=== PATIENT | female | born 1945 | race Caucasian/White ===

== ENCOUNTER → 2020-07-27 12:55 | Outpatient (CLI) | payer MEDICARE, OTHER, SELFPAY ==
[2020-07-27] MEDS: COVID-19 VACC, Ad26(JANSSEN)/PF 0.5 ML IM (13:05)
== END ==
PROVIDERS: Family Provider Family Medicine; PCP Family Medicine; Visit Provider Internal Medicine
DX: Z23 Encounter for immunization (principal)
CPT/HCPCS: 0031A; 91303

== ENCOUNTER 2023-01-14 13:53 | Inpatient (IN) | payer MEDICARE, OTHER, SELFPAY ==
[2023-01-14] VITALS (14 sets, daily range): BP systolic 158–223; BP diastolic 61–88; PULSE 58–88; RESP 16–20; TEMP 36.3–36.4; O2SAT 92–97; BMI 25.4
--- NOTE | 2023-01-14 13:56 | DI.RAD.S_ITS ---
PROCEDURE: XR KNEE RT 3V INDICATIONS: fall with knee pain TECHNIQUE: 2 views of the knee were acquired. COMPARISON: [facility], CR, XR HIP W PEL IF DONE RT 2V, 01/14/2023, 14:02. FINDINGS: Bones: No fractures or dislocations. No suspicious bony lesions. Soft tissues: No joint effusion. No suspicious soft tissue calcifications. IMPRESSION: No acute osseous abnormality. If clinical symptoms persist or clinical suspicion for pathology is high, a repeat examination in 7-10 days, or advanced imaging such as CT or MRI is suggested for further evaluation. Dictated by: Vero Romero M.D. on 01/14/2023 at 14:57 Approved by: Vero Romero M.D. on 01/14/2023 at 14:57
--- NOTE | 2023-01-14 13:56 | DI.RAD.S_ITS ---
PROCEDURE: XR HIP W PEL IF DONE RT 2V INDICATIONS: fall with shortening and external rotation TECHNIQUE: AP pelvis with lateral view(s) of the right hip(s). COMPARISON: None. FINDINGS: Bones: There is a right femoral neck fracture with impaction and angulation. Pelvic ring appears intact. No suspicious bony lesions. Soft tissues: The visualized bowel gas pattern is normal. No suspicious soft tissue calcifications. IMPRESSION: Right femoral neck fracture. Dictated by: Vero Romero M.D. on 01/14/2023 at 14:55 Approved by: Vero Romero M.D. on 01/14/2023 at 14:56
[2023-01-14] MEDS: ONDANSETRON 4 MG/2 ML INJ IV (14:00)
[2023-01-14] MEDS: HYDROMORPHONE 0.5 MG INJ IV ×3 (14:00→17:33)
[2023-01-14] MEDS: SODIUM CHLORIDE 0.9% 1,000 ML 1000 ML IV (14:00)
--- NOTE | 2023-01-14 14:12 | ED.GENADULT ---
HPI - General Adult General Chief complaint: Fall Stated complaint: pelvic pain, Syncope Time Seen by Provider: 01/14/23 13:56 History of Present Illness HPI narrative: 77F daily smoker with history of hypertension diabetes presents by EMS for evaluation right hip pain after a ground level fall. She denies any head neck or back pain. She denies any chest pain or shortness of breath. She denies prodromal symptoms such as dizziness, weakness or lightheadedness. EMS was activated and during a repositioning she felt intense pain and had a brief syncopal episode, likely vagal. IV was placed he was given fentanyl 100 mcg prior to arrival and activated as a modified trauma given age and suspected injury. She denies any head injury and takes no blood thinners Related Data Allergies Allergy/AdvReac Type Severity Reaction Status Date / Time aspirin [ASPIRIN] Allergy Mild retinal Unverified 08/23/17 12:31 hemorrhage cefazolin [CEFAZOLIN] Allergy Mild headache Unverified 08/23/17 12:31 cephalexin [CEPHALEXIN] Allergy Mild headache Unverified 08/23/17 12:31 lisinopril [LISINOPRIL] Allergy Mild abdominal Unverified 08/23/17 12:31 pain metformin [METFORMIN] Allergy Mild Unverified 08/23/17 12:31 ramipril [RAMIPRIL] Allergy Mild gi Unverified 08/23/17 12:31 issue/abdominal pain Review of Systems Review of Systems Narrative: GENERAL: Denies chills, fatigue, malaise, fever, sweats. HEENT: Denies sinus pain, ear pain, sore throat, difficulty swallowing, dizziness. RESPIRATORY: Denies dyspnea, cough, wheezing, hemoptysis, sputum. CARDIOVASCULAR: Denies chest pain, palpitations, orthopnea, edema, GASTROINTESTINAL: Denies nausea, vomiting, abdominal pain, diarrhea, constipation, melena. : Denies dysuria, frequency, incontinence, hematuria, urinary retention. MUSCULOSKELETAL: See HPI SKIN: Denies rash, skin lesions, or other NEUROLOGIC: Denies weakness, headache, numbness, change in speech, confusion, seizures, incoordination. PSYCHIATRIC: No concerning psychosocial issues. 12 point review of systems is negative except for those stated above Patient History Medical History HTN (hypertension) Pre-diabetes Surgical History H/O hand surgery Status post hernia repair Status post hysterectomy Family History Brother Age: 72 Diabetes mellitus Hypertension High cholesterol Father Diabetes mellitus Heart disease Hypertension Grandmother Stroke Grandmother Stroke Social History household members: spouse Smoking Status: Current every day smoker Exam Narrative Exam Narrative: GENERAL: [77] year old patient appears stated age. Well-developed patient, in mild distress. GCS 15 HEAD: Atraumatic. Normocephalic. EYES: Pupils equal round and reactive. Extraocular motions intact. No scleral icterus. No injection or drainage. ENT: Nose without bleeding, purulent drainage. Throat without erythema, tonsillar hypertrophy or exudate. Airway patent. NECK: Trachea midline. Non tender CARDIOVASCULAR: Regular rate and rhythm without murmurs, gallops, or rubs. RESPIRATORY: Clear to auscultation. Breath sounds equal bilaterally. No wheezes, rales, or rhonchi. GASTROINTESTINAL: Abdomen soft, non-tender, nondistended. EXTREMITIES: Severe right hip pain, obvious deformity, shortening and external rotation, this is closed, isolated and neurovascularly intact BACK: Nontender without deformity or crepitance. No flank tenderness. NEURO: AOx3. SKIN: No rash or erythema of visible areas Initial Vital Signs Initial Vital Signs: Vital Signs Temperature 97.4 F L 01/14/23 13:58 Pulse Rate 82 01/14/23 13:58 Respiratory Rate 20 01/14/23 13:58 Blood Pressure 189/88 H 01/14/23 13:58 Pulse Oximetry 96 01/14/23 13:58 Oxygen Delivery Method Room Air 01/14/23 13:58 Course Orders Ordered: ED Orders 01/14/23 13:56 XR hip w pel if done RT 2V Stat XR knee RT 3V Stat 01/14/23 14:12 Complete Blood Count AUTO DIFF Stat Comprehensive Metabolic Panel Stat Lipase Stat Magnesium Stat NT-proBNP (BNP-Adult 18+) Stat PTT Partial Thromboplastin Teddy Stat Prothrombin Time INR Stat Troponin & CK Cardiac Panel Stat Acetaminophen (Acetaminophen 325 Mg Tablet) 975 mg PO Q8H PRN PRN Reason: Pain, Mild (1-3) Hydromorphone HCl (Hydromorphone 0.5 Mg Inj) 0.5 mg IV Q2H PRN PRN Reason: Pain, Severe (7-10) Methocarbamol (Methocarbamol 500 Mg Tablet) 500 mg PO QID PRN PRN Reason: Muscle Spasm Naloxone HCl (Naloxone 0.4 Mg/Ml Vial) 0.2 mg IV Q2MIN PRN PRN Reason: Opiate Reversal Ondansetron HCl (Ondansetron 4 Mg/2 Ml Inj) 4 mg IV Q8HR PRN PRN Reason: Nausea And Vomiting Oxycodone HCl (Oxycodone Ir 5 Mg Tablet) 5 mg PO Q3HR PRN PRN Reason: Pain, Moderate (4-6) Discontinued Medications Hydromorphone HCl (Hydromorphone 0.5 Mg Inj) 0.5 mg IV NOW ONE Stop: 01/14/23 13:57 Last Admin: 01/14/23 14:00 Dose: 0.5 mg Documented By: JORGE Hydromorphone HCl (Hydromorphone 0.5 Mg Inj) 0.5 mg IV NOW ONE Stop: 01/14/23 15:37 Last Admin: 01/14/23 15:45 Dose: 0.5 mg Documented By: JORGE Sodium Chloride (Normal Saline 0.9%) 1,000 mls @ 1,000 mls/hr IV BOLUS ONE Stop: 01/14/23 14:55 Last Infusion: 01/14/23 15:07 Dose: 0 mls/hr Documented By: Admin: 01/14/23 14:00 Dose: 1,000 mls/hr Documented By: JORGE Ondansetron HCl (Ondansetron 4 Mg/2 Ml Inj) 4 mg IV NOW ONE Stop: 01/14/23 13:57 Last Admin: 01/14/23 14:00 Dose: 4 mg Documented By: JORGE Consultations Consultation #1: discussed with Dr. Guy (ortho) will get to the OR today or tomorrow, requests admit to hospitalist Consultation #2: Dr. Gonzalez happy to accept Vital Signs Vital signs: Vital Signs - 8 hr 01/14/23 13:58 01/14/23 13:59 01/14/23 14:00 Temperature 97.4 F L Pulse Rate 82 82 Pulse Rate [Right Dorsalis Pedis] Respiratory Rate 20 Blood Pressure 189/88 H 189/88 H Pulse Oximetry 96 95 Oxygen Delivery Method Room Air 01/14/23 14:00 01/14/23 14:30 01/14/23 14:31 Temperature Pulse Rate 83 62 70 Pulse Rate [Right Dorsalis Pedis] Respiratory Rate Blood Pressure Pulse Oximetry 95 97 94 Oxygen Delivery Method 01/14/23 14:31 01/14/23 14:35 01/14/23 14:35 Temperature Pulse Rate 73 Pulse Rate [Right Dorsalis Pedis] Respiratory Rate Blood Pressure 199/81 H 215/84 H Pulse Oximetry 92 Oxygen Delivery Method 01/14/23 14:00 01/14/23 14:45 01/14/23 14:45 Temperature Pulse Rate 68 Pulse Rate [Right Dorsalis Pedis] 88 Respiratory Rate Blood Pressure 223/87 H Pulse Oximetry 93 Oxygen Delivery Method 01/14/23 15:00 01/14/23 15:03 01/14/23 15:03 Temperature Pulse Rate 58 L 63 Pulse Rate [Right Dorsalis Pedis] Respiratory Rate Blood Pressure 190/82 H Pulse Oximetry 93 96 Oxygen Delivery Method Medical Decision Making Lab Data 01/14/23 14:12 01/14/23 14:12 Labs: Lab Results 01/14/23 01/14/23 01/14/23 Range/Units 14:12 14:12 14:12 WBC 6.4 (4.5-11.0) X10^3/uL RBC 4.25 (4.0-5.2) X10^6/uL Hgb 12.7 (12.0-16.0) g/dL Hct 37.5 (36-46) % MCV 88.3 (80-100) fL MCH 29.8 (26-34) PG MCHC 33.8 (30-36) % RDW 13.4 (11.6-14.8) % Plt Count 243 (150-400) X10^3/uL Neut % (Auto) 65.4 (50-75) % Lymph % (Auto) 24.9 L (25-40) % R[place] % (Auto) 7.6 (3-14) % Eos % (Auto) 1.1 L (2-4) % Baso % (Auto) 1.0 (0-2) % Neut # (Auto) 4200 (6178-5914) /uL Lymph # (Auto) 1600 (0414-0938) /uL Rin[place] # (Auto) 500 (0-900) /uL Eos # (Auto) 100 (0-450) /uL Baso # (Auto) 100 (0-100) /uL PT 11.7 (10.1-12.7) SECONDS INR 1.0 (0.9-1.3) APTT 24 L (26-36) SECONDS Sodium 140 (137-145) mmol/L Potassium 3.7 (3.4-5.1) mmol/L Chloride 109 H (98-107) mmol/L Carbon Dioxide 23 (22-32) mmol/L BUN 17 (7-17) mg/dL Creatinine 0.81 (0.52-1.04) mg/dL Estimated GFR > 60 (>60) mL/min BUN/Creatinine Ratio 21.0 (6-22) Glucose 160 H (80-110) mg/dL Calcium 9.3 (8.4-10.2) mg/dL Magnesium 1.8 (1.6-2.3) mg/dL Total Bilirubin 0.7 (0.2-1.3) mg/dL AST 29 (14-36) IU/L ALT 19 (<35) IU/L Alkaline Phosphatase 65 (38-126) U/L Total Creatine Kinase 66 (30-135) U/L Troponin I < 0.012 (0.01-0.034) ng/mL NT-Pro-B Natriuret Pep 467 H (<450) pg/mL Total Protein 7.2 (6.3-8.2) g/dL Albumin 4.2 (3.5-5.0) g/dL Globulin 3.0 (1.7-4.1) g/dL Albumin/Globulin Ratio 1.4 (1.0-2.8) Lipase 80 (23-300) U/L MDM Narrative Medical decision making narrative: 77-year-old female with ground level fall resulting in right hip fracture requires hospitalization for surgical repair. Patient is the primary historian. I have had discussions with both hospitalist and Orthopedics, see details above. Patient and family understand and agree with the diagnosis and plan Discharge Plan Departure Patient Disposition: Admitted As Inpatient Clinical Impression: Closed fracture of right hip Admit Date/Time: 01/14/23 15:13 Admit Provider: Chad Gonzalez
[2023-01-14 14:22] LABS: Add Manual Diff / Slide Review NO; Basophils Absolute Auto 100 /uL (0-100); Eosinophils Absolute Auto 100 /uL (0-450); Eosinophils Percent Auto 1.1 % (2-4); Hematocrit 37.5 % (36-46); Hemoglobin 12.7 g/dL (12.0-16.0); Lymphocytes Absolute Auto 1600 /uL (1100-4500); Lymphocytes Percent Auto 24.9 % (25-40); Mean Corpuscular HGB Conc 33.8 % (30-36); Mean Corpuscular Hemoglobin 29.8 PG (26-34); Mean Corpuscular Volume 88.3 fL (80-100); Monocytes Absolute Auto 500 /uL (0-900); Monocytes Percent Auto 7.6 % (3-14); Neutrophils Absolute Auto 4200 /uL (1500-7000); Neutrophils Percent Auto 65.4 % (50-75); Platelet Count 243 X10^3/uL (150-400); Red Blood Cell Count 4.25 X10^6/uL (4.0-5.2); Red Cell Distribution Width 13.4 % (11.6-14.8); White Blood Cell Count 6.4 X10^3/uL (4.5-11.0)
[2023-01-14 14:44] LABS: Alanine Aminotransferase 19 IU/L (<35); Albumin 4.2 g/dL (3.5-5.0); Albumin Globulin Ratio 1.4 (1.0-2.8); Alkaline Phosphatase 65 U/L (38-126); Aspartate Aminotransferase 29 IU/L (14-36); Bilirubin Total 0.7 mg/dL (0.2-1.3); Blood Urea Nitrogen 17 mg/dL (7-17); Calcium 9.3 mg/dL (8.4-10.2); Carbon Dioxide 23 mmol/L (22-32); Chloride 109 mmol/L (98-107); Creatine Kinase 66 U/L (30-135); Estimated Glomerular Filt Rate > 60 mL/min (>60); Glucose 160 mg/dL (80-110); HEMOLYSIS 44 (0-50); Lipase 80 U/L (23-300); Magnesium 1.8 mg/dL (1.6-2.3); Potassium 3.7 mmol/L (3.4-5.1); Sodium 140 mmol/L (137-145); Total Protein 7.2 g/dL (6.3-8.2)
[2023-01-14 14:45] LABS: Prothrombin Time 11.7 SECONDS (10.1-12.7)
[2023-01-14 14:47] LABS: PTT Partial Thromboplastin Tim 24 SECONDS (26-36)
[2023-01-14 14:54] LABS: NT-proBNP (BNP-Adult 18+) 467 pg/mL (<450); Troponin I < 0.012 ng/mL (0.01-0.034)
--- NOTE | 2023-01-14 16:41 | PM.HP.1 ---
History of Present Illness History of Present Illness Date Patient Seen: 01/14/23 Time Patient Seen: 16:41 Chief complaint: pelvic pain, Syncope Narrative: This is a 77 year old female with PMH of pre-diabetes, and HTN currently diet controlled, daily smoker she states who presented after a mechanical fall with R hip pain. Patient was on a walk, tripped on an uneven sidewalk and had instant pain. She denies preceeding dizziness, chest pain, palpitations. She denies recent dyspnea on exertion or chest pain. Imaging in the ER showed a R femoral neck fracture. Orthopedic surgery plans to perform operative interventions tomorrow morning. She was admitted to hospitalist service for further management. [facility] Medical History HTN (hypertension) Pre-diabetes Surgical History H/O hand surgery Status post hernia repair Status post hysterectomy Family History Brother Age: 72 Diabetes mellitus Hypertension High cholesterol Father Diabetes mellitus Heart disease Hypertension Grandmother Stroke Grandmother Stroke Social History Smoking Status: Current every day smoker Meds Home Medications and Allergies Allergies Allergy/AdvReac Type Severity Reaction Status Date / Time aspirin [ASPIRIN] Allergy Mild retinal Unverified 08/23/17 12:31 hemorrhage cefazolin [CEFAZOLIN] Allergy Mild headache Unverified 08/23/17 12:31 cephalexin [CEPHALEXIN] Allergy Mild headache Unverified 08/23/17 12:31 lisinopril [LISINOPRIL] Allergy Mild abdominal Unverified 08/23/17 12:31 pain metformin [METFORMIN] Allergy Mild Unverified 08/23/17 12:31 ramipril [RAMIPRIL] Allergy Mild gi Unverified 08/23/17 12:31 issue/abdominal pain Review of Systems Review of Systems Narrative: All other systems reviewed with the patient and are negative unless otherwise stated. Exam Vital Signs (past 8 hours): - 01/14/23 13:58 01/14/23 13:59 01/14/23 14:00 Temperature 97.4 F L Pulse Rate 82 82 Pulse Rate [Right Dorsalis Pedis] Respiratory Rate 20 Blood Pressure 189/88 H 189/88 H Pulse Oximetry 96 95 Oxygen Delivery Method Room Air Oxygen Flow Rate 01/14/23 14:00 01/14/23 14:30 01/14/23 14:31 Temperature Pulse Rate 83 62 70 Pulse Rate [Right Dorsalis Pedis] Respiratory Rate Blood Pressure Pulse Oximetry 95 97 94 Oxygen Delivery Method Oxygen Flow Rate 01/14/23 14:31 01/14/23 14:35 01/14/23 14:35 Temperature Pulse Rate 73 Pulse Rate [Right Dorsalis Pedis] Respiratory Rate Blood Pressure 199/81 H 215/84 H Pulse Oximetry 92 Oxygen Delivery Method Oxygen Flow Rate 01/14/23 14:00 01/14/23 14:45 01/14/23 14:45 Temperature Pulse Rate 68 Pulse Rate [Right Dorsalis Pedis] 88 Respiratory Rate Blood Pressure 223/87 H Pulse Oximetry 93 Oxygen Delivery Method Oxygen Flow Rate 01/14/23 15:00 01/14/23 15:03 01/14/23 15:03 Temperature Pulse Rate 58 L 63 Pulse Rate [Right Dorsalis Pedis] Respiratory Rate Blood Pressure 190/82 H Pulse Oximetry 93 96 Oxygen Delivery Method Oxygen Flow Rate 01/14/23 15:16 01/14/23 15:16 01/14/23 15:30 Temperature Pulse Rate 63 66 Pulse Rate [Right Dorsalis Pedis] Respiratory Rate Blood Pressure 215/86 H Pulse Oximetry 95 94 Oxygen Delivery Method Oxygen Flow Rate 01/14/23 16:00 Temperature 97.3 F L Pulse Rate 59 L Pulse Rate [Right Dorsalis Pedis] Respiratory Rate 17 Blood Pressure 167/61 H Pulse Oximetry 96 Oxygen Delivery Method Oxygen Flow Rate 0 Oxygen Delivery Method Room Air Oxygen Flow Rate 0 Narrative Exam Narrative: General:? Patient is well developed and well nourished, shows discomfort with movement. Slowed responses consistent with opiate administration. HEENT:? Normocephalic, atraumatic, extraocular muscles intact, oral pharynx is clear and mucous membranes are moist. Neck: supple and symmetric, trachea is midline, no cervical adenopathy. Negative for JVD Chest:? Normal AP diameter and contour without kyphoscoliosis, no tachypnea, equal chest rise bilaterally. Lungs:? CTA b/l no wheezing rhonchi or rales. Cardio:?RRR no m/r/g. Abdomen: S NT ND. Musculoskeletal:? Muscle strength and tone are equal within normal limits, no deformity. Extremities: bilateral non-pitting edema, RLE short and externally rotated. Skin:? Pale,? Warm to touch,dry and intact without rashes, ulcerations or petechiae.? Neuro:? Alert and orientated x3 though is slowed and seemingly confused (consistent with opiate given in ER).? sensation to touch intact in all extremities, no gross deficits noted of cranial nerves. Psych:? Patient has a well-kept appearance, appropriate affect, mental status attitude thought context and judgment are appropriate for age. Objective Labs 01/14/23 14:12 01/14/23 14:12 Labs: Laboratory Results - last 24 hr 01/14/23 01/14/23 01/14/23 14:12 14:12 14:12 WBC 6.4 RBC 4.25 Hgb 12.7 Hct 37.5 MCV 88.3 MCH 29.8 MCHC 33.8 RDW 13.4 Plt Count 243 Neut % (Auto) 65.4 Lymph % (Auto) 24.9 L Holt % (Auto) 7.6 Eos % (Auto) 1.1 L Baso % (Auto) 1.0 Neut # (Auto) 4200 Lymph # (Auto) 1600 Holt # (Auto) 500 Eos # (Auto) 100 Baso # (Auto) 100 PT 11.7 INR 1.0 APTT 24 L Sodium 140 Potassium 3.7 Chloride 109 H Carbon Dioxide 23 BUN 17 Creatinine 0.81 Estimated GFR > 60 BUN/Creatinine Ratio 21.0 Glucose 160 H Calcium 9.3 Magnesium 1.8 Total Bilirubin 0.7 AST 29 ALT 19 Alkaline Phosphatase 65 Total Creatine Kinase 66 Troponin I < 0.012 NT-Pro-B Natriuret Pep 467 H Total Protein 7.2 Albumin 4.2 Globulin 3.0 Albumin/Globulin Ratio 1.4 Lipase 80 Assessment & Plan Assessment & Plan narrative: 1. R femoral neck fracture, pathologic due to likely osteoporosis. - NPO @ [facility], OR planned for tomorrow per orthopedic surgery - with smoking and HTN history, have ordered pre-op EKG and CXR for evidence of underlying disease including heart or obstructive lung disease. She has no current symptoms of dyspnea on exertion or chest pain. - continue pain control overnight with oxycodone, tylenol, muscle relaxants. - PT/OT consults after OR - check TSH 2. Daily smoker - no nicotine patch at this time. Provide as needed. Smokes about 1/4 ppd. 3. HTN - not currently on medications, likely elevated due to pain initially. Continue to monitor with q4 vitals. 4. history of DM - glucose appears controlled on admit labs. - okay for regular diet. - check an A1c. 5. Toxic encephalopathy due to opiates - patient appeared quite confused on admission after IV dilaudid. Try to limit opiate therapies and continued adjuctive treatments. - no known cognitive impairment and no recent concern per discussion with spouse - no recent urinary symptoms. If no improvement consider UA and further evaluation. Code: Full, surrogate is patient's spouse Additional history obtained via discussion with patient's spouse and ER provider. Discussed plan of care with patient and spouse. DVT: SCDs prior to surgery I have utilized all available immediate resources to obtain, update, or review the patient's current medications. Dispo: Admitted inpatient as her stay is expected to exceed two midnights. Location either home or SNF depending on PT/OT evaluations after surgery. Quality MIPS - Admit I confirm the patient?s Advance Care Plan is present, Code status is documented, Surrogate decision maker is in patient?s record [If Yes, STOP here]: Yes
--- NOTE | 2023-01-14 16:44 | DI.RAD.S_ITS ---
PROCEDURE: XR CHEST 1V INDICATIONS: pre-op XR, previous smoker TECHNIQUE: One view of the chest was acquired. COMPARISON: None. FINDINGS: Surgical changes and devices: None. Lungs and pleura: There is a 5.7 cm masslike opacity can be seen involving the right lower lung along the cardiac border. The lungs otherwise are clear. Mediastinum: Mediastinal contours appear normal. Heart size is normal. Bones and chest wall: No suspicious bony lesions. Age-appropriate bony degenerative changes are seen. Overlying soft tissues appear unremarkable. IMPRESSION: 5.7 cm ossicle opacity seen along the right cardiac border. Differential diagnosis includes a neoplasm as well as atelectasis. Please consider a dedicated chest CT with IV contrast for further evaluation. Dictated by: Satish Borja M.D. on 01/14/2023 at 16:06 Approved by: Satish Borja M.D. on 01/14/2023 at 16:07
[2023-01-14] MEDS: methocarbamoL 500 MG TABLET PO (17:33)
--- NOTE | 2023-01-14 18:51 | DI.CT.S_ITS ---
PROCEDURE: CT CHEST W CON INDICATIONS: 5.7 cm opacity on CXR TECHNIQUE: After the administration of intravenous contrast, 5 mm thick sections acquired from the pulmonary apices to the posterior costophrenic angles. 1 mm axial lung, 5 mm thick coronal and sagittal reformats and 7 mm axial MIP were acquired. For radiation dose reduction, the following was used: automated exposure control, adjustment of mA and/or kV according to patient size. COMPARISON: [facility], CR, XR CHEST 1V, 01/14/2023, 16:44. FINDINGS: Image quality: Excellent. Lungs and pleura: No acute air space opacities. Scattered atelectasis in periphery of bilateral lung couch are seen. 1.2 cm calcified granuloma adjacent to posterior pleura of left lower lobe is also noted. No pleural effusions or pneumothorax. Central and peripheral airways are patent and normal in caliber. Mediastinum: Heart size is mildly enlarged. No pericardial effusion. Mild atherosclerotic calcifications in coronary vessels and thoracic aorta are seen. A few calcified lymph nodes are seen in subcarinal space and left axilla are also noted. No mediastinal or hilar adenopathy by size criteria. Thoracic aorta and central pulmonary arteries are normal in size. Esophagus is normal in caliber. No hiatal hernia. Bones and chest wall: No suspicious bony lesions. No vertebral body compression fractures. No axillary or supraclavicular adenopathy by size criteria. Thyroid gland is within normal limits. Abdomen: Visualized upper abdominal solid organs appear normal. Upper abdominal bowel loops are normal in caliber. IMPRESSION: 1. No suspicious pulmonary nodule or mass is seen. Scattered atelectasis in periphery of bilateral lung couch. 1.2 cm calcified granuloma in posterior aspect of left lower lobe. Chest radiograph finding of possible opacity in right lower lung field likely represent prominent pericardial fat in this area. 2. No pleural effusion or pneumothorax. Airway is patent. 3. No mediastinal or hilar lymphadenopathy by size criteria. A few calcified lymph nodes in mediastinum and left hilar region suggestive of prior granulomatous infection. Dictated by: Dangelo Gold M.D. on 01/14/2023 at 20:22 Approved by: Dangelo Gold M.D. on 01/14/2023 at 20:26
[2023-01-14] MEDS: SODIUM CHLORIDE 0.9% FLUSH 10 ML IV (20:55)
--- NOTE | 2023-01-14 21:56 | PC.NURSE ---
Patient having difficulty with communicating with staff using incorrect words and rambling. Per RN, at shift change report, this is patient' normal per spouse and he reported she has early signs of dementia. At time of assessment she was alert and oriented except to day of month and day of week but did have continued difficulty with finding words and rambling thoughts. Breath sounds CTA with RA sat of 94%. HRR but BP still elevated at 158/64 which has improved from BP readings done in ER. Denied nausea. BT present and abdomen is soft. Indwelling catheter is patent and urine is clear, light dian. Allevyn dressing to right elbow is CDI. Using Angle tilt function to reposition patient q2h due to unrepaired fractured hip so assessment of skin on back/buttocks/coccyx not assessed at this time. Bilateral calf SCD's were applied. CMS is intact except for inability to lift right leg which is shortened and externally rotated. No indication of pain at time of assessment. Fall risk score is high and bed alarm is activated.
[2023-01-15] VITALS (17 sets, daily range): BP systolic 83–175; BP diastolic 35–68; PULSE 59–66; RESP 12–18; TEMP 35.9–36.9; O2SAT 92–95; BMI 25.4
--- NOTE | 2023-01-15 | DI.RAD.S_ITS ---
PROCEDURE: XR PELVIS 1-2V INDICATIONS: OR TECHNIQUE: Intra-operative view of the pelvis and hip acquired. COMPARISON: [facility], [place], XR HIP W PEL IF DONE RT 2V, 01/14/2023, 14:02. [facility], [place], XR PELVIS 1-2V, 01/15/2023, 11:33. FINDINGS: Bones: Intraoperative devices prior to placement of arthroplasty prostheses are in expected positions. No fractures or suspicious bony lesions. Soft tissues: Overlying surgical retractors are present, along with other intraoperative changes. IMPRESSION: Normal intraoperative examination. Dictated by: Satish Borja M.D. on 01/15/2023 at 15:10 Approved by: Satish Borja M.D. on 01/15/2023 at 15:10
--- NOTE | 2023-01-15 | DI.RAD.S_ITS ---
PROCEDURE: XR PELVIS 1-2V INDICATIONS: POST OP TECHNIQUE: 1 view of the lower pelvis acquired. COMPARISON: [facility], [place], XR HIP W PEL IF DONE RT 2V, 01/14/2023, 14:02. [facility], [place], XR PELVIS 1-2V, 01/15/2023, 10:21. FINDINGS: Bones: Patient is status post right hip arthroplasty, with hardware components in expected positions. The hip joint appears congruent. The visualized bony structures appear intact. Soft tissues: Overlying postoperative changes are noted. No suspicious soft tissue densities. IMPRESSION: Normal postoperative examination. Dictated by: Satish Borja M.D. on 01/15/2023 at 15:07 Approved by: Satish Borja M.D. on 01/15/2023 at 15:08
[2023-01-15] MEDS: HYDROMORPHONE 0.5 MG INJ IV ×2 (02:21→06:52)
[2023-01-15] MEDS: SODIUM CHLORIDE 0.9% FLUSH 10 ML IV ×2 (02:22→06:52)
--- NOTE | 2023-01-15 06:15 | P.CONS_ITS ---
History of Present Illness Consult details Date Patient Seen: 01/15/23 Time Patient Seen: 07:30 Chief complaint: pelvic pain, Syncope Reason for consult: right femoral neck fracture Requesting provider: Miguel Guy Narrative: The patient is a 77-year-old community ambulator patient that tripped or fell on a curb yesterday onto her right side. She had immediate pain and was unable to weightbear. She was brought to the emergency room where she was found to have a displaced right femoral neck fracture and a right elbow abrasion. She is a current active smoker proximally a quarter of a pack per day. Her is with her at bedside this morning in the hospital provide some independent history. Denies preoperative hip problems. No known DEXA scan in the last 2 years. States she has an allergy to sulfites. Denies pain other than right elbow and right hip. Past medical history of prediabetes and hypertension. Of note hemoglobin A1c at the hospital today 6.8% Denies chest pain or shortness of breath Chest x-ray and chest CT were obtained Patient was admitted to the hospitalist team for medical management. Meds Home Medications and Allergies Home Medications Medication Instructions Recorded Confirmed Type No Known Home Medications 01/14/23 01/14/23 History Allergies Allergy/AdvReac Type Severity Reaction Status Date / Time aspirin [ASPIRIN] Allergy Mild retinal Unverified 08/23/17 12:31 hemorrhage cefazolin [CEFAZOLIN] Allergy Mild headache Unverified 08/23/17 12:31 cephalexin [CEPHALEXIN] Allergy Mild headache Unverified 08/23/17 12:31 lisinopril [LISINOPRIL] Allergy Mild abdominal Unverified 08/23/17 12:31 pain metformin [METFORMIN] Allergy Mild Unverified 08/23/17 12:31 ramipril [RAMIPRIL] Allergy Mild gi Unverified 08/23/17 12:31 issue/abdominal pain Review of Systems Review of Systems ROS: Yes All systems reviewed with the patient and are negative except as otherwise documented Exam Vital Signs (past 8 hours): - 01/15/23 00:08 01/15/23 00:08 01/15/23 04:17 Temperature 98.2 F 97.5 F L Pulse Rate 59 L 60 Respiratory Rate 16 16 Blood Pressure 167/67 H 175/68 H Pulse Oximetry 93 93 92 Oxygen Delivery Method Room Air Oxygen Flow Rate 0 0 0 Oxygen Delivery Method Room Air Oxygen Flow Rate 0 Narrative Exam Narrative: Alert oriented female in no acute distress currently. Lying in bed. at bedside HEENT exam normocephalic atraumatic Heart regular rate and rhythm Lungs clear to auscultation Upper extremities moving bilateral upper extremities without limitation. There is a Mepilex dressing on the right elbow. This is taken down and reveals a superficial abrasion. Full range of motion. Right lower extremity shortened and externally rotated. Demonstrates dorsiflexion plantar flexion wiggles toes. Palpable dorsalis pedis pulse. Soft calf. Nontender knee. Left lower extremity demonstrates normal alignment 5/5 dorsiflexion plantar flexion palpable pulses. No tenderness ankle knee or thigh Sensation grossly intact Objective Imaging AP pelvis and lateral right hip: My impression: AP pelvis and lateral right hip demonstrate displaced right femoral neck fracture. Radiologist's impression: MPRESSION:??Right?femoral?neck?fracture. Labs 01/15/23 05:40 01/15/23 05:40 Labs: Laboratory Results - last 24 hr 01/14/23 01/14/23 01/14/23 14:12 14:12 14:12 WBC 6.4 RBC 4.25 Hgb 12.7 Hct 37.5 MCV 88.3 MCH 29.8 MCHC 33.8 RDW 13.4 Plt Count 243 Neut % (Auto) 65.4 Lymph % (Auto) 24.9 L Greeley % (Auto) 7.6 Eos % (Auto) 1.1 L Baso % (Auto) 1.0 Neut # (Auto) 4200 Lymph # (Auto) 1600 [place]ley # (Auto) 500 Eos # (Auto) 100 Baso # (Auto) 100 PT 11.7 INR 1.0 APTT 24 L Sodium 140 Potassium 3.7 Chloride 109 H Carbon Dioxide 23 BUN 17 Creatinine 0.81 Estimated GFR > 60 BUN/Creatinine Ratio 21.0 Glucose 160 H Calcium 9.3 Magnesium 1.8 Total Bilirubin 0.7 AST 29 ALT 19 Alkaline Phosphatase 65 Total Creatine Kinase 66 Troponin I < 0.012 NT-Pro-B Natriuret Pep 467 H Total Protein 7.2 Albumin 4.2 Globulin 3.0 Albumin/Globulin Ratio 1.4 Lipase 80 PFSH Medical History HTN (hypertension) Pre-diabetes Surgical History H/O hand surgery Status post hernia repair Status post hysterectomy Family History Brother Age: 72 Diabetes mellitus Hypertension High cholesterol Father Diabetes mellitus Heart disease Hypertension Grandmother Stroke Grandmother Stroke Social History household members: spouse Tobacco & Substance Use Smoking Status: Current every day smoker Assessment & Plan Assessment and plan (1) Osteoporotic fracture of right hip: Qualifiers: Encounter type: initial encounter Qualified Code(s): M80.051A - Age- related osteoporosis with current pathological fracture, right femur, initial encounter for fracture Status: Acute (2) Closed fracture of right hip: Qualifiers: Encounter type: initial encounter Qualified Code(s): S72.001A - Fracture of unspecified part of neck of right femur, initial encounter for closed fracture Status: Acute Plan Ground level fall fragility fracture right femoral neck, osteoporotic hip fracture. Discussed poor healing of displaced femoral neck fractures. Recommendation is for endoprosthetic, hemiarthroplasty partial hip replacement for her displaced right femoral neck fracture. Discussed this would allow immediate weightbear as tolerated. Discussed surgical risks benefits and alternatives. Discussed the surgical benefits outweigh the risks of a untreated hip fracture. Discussed untreated hip fracture results in bed rest and inability to walk and ultimately pneumonia and cardiopulmonary complications. Treatment with partial hip replacement unless immediate weight-bearing helps limit the increased morbidity of prolonged bed last. Discussed these injuries do have a risk of blood clot, stroke, fracture, dislocation, paralysis, blood loss need for blood transfusion and infection. Risks benefits and alternatives to surgery were discussed with the patient and her . Informed consent was signed for partial hip replacement indication right displaced femoral neck hip fracture. Further discussed ground level fall hip fracture the definition of osteoporotic hip fracture. Patient has not had a DEXA scan in 2 years. Discussed during recovery this is recommended with her primary care doctor. Recommended calcium and vitamin-D. If DEXA scan shows more severe osteoporosis then additional medications can also be considered and counseled with the primary care doctor. Planned surgery today for endoprosthetic replacement (cemented hemiarthroplasty for displaced right femoral neck fracture) NPO for surgery. Patient encouraged to participate in smoking cessation Assessment & Plan narrative: High-level medical decision-making. Decision for major orthopedic surgery--hip fracture. Medical risk factors including active smoking and osteoporosis. Requires inpatient hospital stay. Anticipate home with assistance versus long-term discharge after surgery. Time Spent With Patient Time with patient: 50 to 69 minutes with 50% spent counseling/coordinating care
[2023-01-15 06:17] LABS: Add Manual Diff / Slide Review NO; Basophils Absolute Auto 0 /uL (0-100); Basophils Percent Auto 0.2 % (0-2); Eosinophils Absolute Auto 0 /uL (0-450); Eosinophils Percent Auto 0.2 % (2-4); Hematocrit 38.8 % (36-46); Hemoglobin 13.2 g/dL (12.0-16.0); Lymphocytes Absolute Auto 900 /uL (1100-4500); Lymphocytes Percent Auto 9.5 % (25-40); Mean Corpuscular HGB Conc 34.1 % (30-36); Mean Corpuscular Hemoglobin 29.9 PG (26-34); Mean Corpuscular Volume 87.7 fL (80-100); Monocytes Absolute Auto 600 /uL (0-900); Monocytes Percent Auto 5.8 % (3-14); Neutrophils Absolute Auto 8100 /uL (1500-7000); Neutrophils Percent Auto 84.3 % (50-75); Platelet Count 206 X10^3/uL (150-400); Red Blood Cell Count 4.42 X10^6/uL (4.0-5.2); Red Cell Distribution Width 13.6 % (11.6-14.8); White Blood Cell Count 9.6 X10^3/uL (4.5-11.0)
[2023-01-15 06:27] LABS: BUN Creatinine Ratio 17.6 (6-22); Blood Urea Nitrogen 12 mg/dL (7-17); Carbon Dioxide 28 mmol/L (22-32); Chloride 103 mmol/L (98-107); Estimated Glomerular Filt Rate > 60 mL/min (>60); Glucose 171 mg/dL (80-110); HEMOLYSIS < 15 (0-50); Hemoglobin A1C% w Est Avg Glu 6.8 % (4.0-6.0); Magnesium 1.9 mg/dL (1.6-2.3); Potassium 3.6 mmol/L (3.4-5.1); Sodium 138 mmol/L (137-145)
[2023-01-15 07:15] LABS: TSH w/ Reflex to FT4 3.43 uIU/mL (0.47-4.68)
--- NOTE | 2023-01-15 08:13 | PM.OP.1 ---
Operative Date/Time/Diagnoses Date of procedure: 01/15/23 Time of procedure: 09:30 Pre-op diagnosis: Osteoporotic right hip fracture M80.051 Closed right hip fracture S72.001 Post-op diagnosis: same Procedure & Clinicians Procedure: Hemiarthroplasty for right femoral neck fracture CPT code 99176 Same procedure as scheduled: Yes Indications: Patient is a 77-year-old female with a displaced right femoral neck fracture. She is indicated for fixation with endoprosthetic replacement to allow immediate weight-bearing and early mobilization and avoid the increased morbidity mortality associated with prolonged bed rest. The risks and benefits of the procedure have been discussed with the patient and given the opportunity to ask questions. The risks of surgery include but are not limited to infection, fracture, dislocation, instability, perceived leg length discrepancy, persistence of pain, damage to nerves and blood vessels, posttraumatic arthritis, DVT, PE, cardiopulmonary complications and . The patient expressed a thorough understanding of the risks and benefits of surgery and has elected to proceed. Consent was signed. During the operation, the services of a physician surgical physician assistant were medically indicated and necessary to provide the exposure of the operative site for the surgical procedure and to maintain the limb in a proper position to carry out the operation safely and efficiently. Without a qualified nurses medical assistants phlebotomists being present this would extended the operative procedure and made the procedure technically more difficult to perform. Surgeon: Jessica Werner Web Services Manager: Isaias Braden Anesthesia Type: General, Spinal and Local Operative Notes Findings: Displaced right femoral neck fracture Closure Type: primary Specimen(s): none sent Prosthetic devices, grafts, tissues, transplants, or devices: Brooke and Nephew tandem unipolar head 45 mm cobalt chromium Brooke and Nephew Synergy stem cemented size 10 cobalt chromium and PMMA Neck +4 Small bone plug 8 mm distal post centralizer Estimated Blood Loss (mL): 200 Blood products transfused: none Tourniquet time (min): 0 Procedure in detail: Hemiarthroplasty for femoral neck fracture CPT code 81246. Patient was seen in the preoperative area the site of surgery was marked and informed consent confirmed. The patient was brought back to the operating room by the anesthesia team. Patient was positioned supine on the operative table. Patient was rolled to a lateral positioned and spinal anesthetic was performed. General anesthetic was also administered. Patient was then moved into the lateral position. The hip vp analysis positioner pads were then placed. A well-padded axillary roll was placed and the arms were appropriately positioned. The affected lower extremity was prepped and draped from the ankle to the iliac crest with ChloraPrep in the standard fashion sterile drapes were placed. Formal time-out procedure was performed confirming the patient's side and site of surgery, presence of informed consent, administration of appropriate preoperative antibiotics. Hip was approached through a standard posterior approach. Dissection was carried down through the skin and subcutaneous tissues sharply through the skin and then with the Bovie through the subcutaneous tissues. The fascia nikkie was exposed and opened. Fascia was opened using the Bovie and the gluteus raad was spread with finger retraction. The Charnley retractor was placed. The inflamed bursa was resected. The piriformis was then identified. A Cobra retractor was placed under the gluteus medius to help expose the external rotators. The piriformis and short external rotators were tagged with a # 2 FiberWire and divided off the trochanter. Capsular tag was completed with a 2. Ethibond. These were then retracted posteriorly to protect sciatic nerve. The femur was then flexed and internally rotated to present the femoral neck and the fracture. A corkscrew and a Carranza were used to remove the femoral head from the acetabulum. This was measured to fit a 45 mm head. Next the femur was presented. A clean-up neck cut was made in a minimal fashion. The trial head size was trialed in the acetabulum. Attention was then turned to the femur. The canal was opened with a box cutting osteotome. This followed by the canal finder and a lateralizing Reamer. And curette to remove additional lateral bone. The tapered reamers were then used up to a size 10 mm. Then broaching was sequentially done up to a size 10 mm. Trial components were placed. The patient was stable in the position of sleep, squatting and could be put through a range of motion with 70? of internal rotation without dislocation. This was felt to be appropriate. An intraop a AP pelvis x-ray was obtained to assess component position. Final components were then selected. The final stem was a size 10. Femoral canal was prepared . The distal small restrictor was placed approximately 1 cm distal to the end of the planned implant. The bone was meticulously cleaned with pulse lavage. Canal was then packed with gauze. Two packages of cement were mixed and carefully pressurized into the femoral canal. The femoral component was then placed without difficulty. This was held in place until the cement hardened. The repeat trial reduction showed good range of motion felt the hip would benefit from little more length so the +4 neck was utilized and this was trialed with excellent range of motion and stability. The final head and neck were then carefully placed. The wound was irrigated. The capsule and muscular flap was repaired with the 2. Ethibond. Next the short external rotators were repaired with 2. FiberWire to the greater trochanter through drill holes in the greater trochanter using the 2.5 drill and a Bespoke suture Passer. These were tied with the leg in abduction. The wound was then irrigated again. The fascia nikkie was closed with 0 Vicryl and the subcutaneous layer was closed with 2-0 Vicryl and the skin with jennifer. An Aquacel dressing was placed. A pillow was placed for protection. The drapes removed and the patient was taken to the recovery room in good condition. There no immediate complications from this procedure. All counts were correct. Postoperative AP pelvis x-ray was obtained in the PACU showed appropriate alignment of the cemented hip hemiarthroplasty with no evidence of fracture. Complications: none Post-operative Condition: stable Disposition: PACU Plan for aftercare: Weightbear as tolerated. Pillow between the legs while in bed. Posterior hip precautions for 6 weeks. Recommend DVT prophylaxis with subcutaneous Lovenox 40 mg subcutaneous daily for 28 days (4 weeks). Follow up in Orthopedic Clinic for staple removal in 2 weeks.
[2023-01-15] MEDS: LACTATED RINGERS 1,000 ML 42 ML IV (08:45)
[2023-01-15] MEDS: CEFAZOLIN 2 GM/100 ML PREMIX 100 ML IV ×2 (09:00→17:17)
--- NOTE | 2023-01-15 10:12 | SUR.OPER ---
Lateral on a boyce bag, head on pillow, gel axillary roll in place, bottom leg bent with gel pad under knee to foot, upper leg straight and supported with pillows. Upper arm supported by pillows and secured over bottom arm to padded arm board. Safety belt at hip, tape over blanket lower legs.
[2023-01-15] MEDS: TRANEXAMIC ACID 1,000 MG in SODIUM CHLORIDE 0.9% 100 ML 200 MG IV (10:35)
[2023-01-15] MEDS: BUPIVACAINE 0.25% (PF) 30 ML, EPINEPHrine 0.15 MG INJ (10:38)
[2023-01-15] MEDS: LACTATED RINGERS 1,000 ML 100 ML IV (13:29)
[2023-01-15] MEDS: IBUPROFEN 600 MG TABLET PO ×2 (13:29→20:38)
[2023-01-15] MEDS: INSULIN LISPRO 100 UNIT/ML 3ML VIAL SUBCUT ×2 (13:39→17:09)
--- NOTE | 2023-01-15 14:45 | CM.DANOTE ---
Addendum entered by MAXIME Gonzalez 01/16/23 14:37: ADD: [facility] accepts for admission tomorrow, 01.17.23. PASRR completed. Patient and spouse updated Addendum entered by MAXIME Gonzalez 01/16/23 10:29: ADD: PT recommending SNF and patient/spouse are agreeable to this, request referral to [facility]. Patient/spouse are having work done on their home here in [place] while they dog sit for a friend who has 17+stairs just to get into the friend's duplex. Leonie at [facility] now reviewing, aiming for discharge to SNF tomorrow Original Note: Initial DCP Assessment Note Pt is a 77 yo female, resident of [place], arrives after a fall with subsequent right femoral neck fracture and a right elbow abrasion Patient was taken to the OR this morning for right hip repair PCP: Divina Bazan, current provider (?) Payer: [facility] byyd Reviewed chart, pt discussed in multidisciplinary rounds this morning. Patient is an indp ambulator at baseline. Awaiting therapy eval to help in dispo planning. Home w/spouse vs SNF. CM team following closely to assist in DC planning and coordination MAXIME Steve Discharge Planning/Care Management CM Discharge Assessment Start: 01/15/23 14:42 Freq: Status: Active Protocol: Document 01/15/23 14:42 TYLER (Rec: 01/15/23 14:45 TYLER [id number]) Discharge Planning Assessment Assigned Offset Pressman MAXIME Conway DPOA/Assigned Designee Name Gurvinder Persaud, spouse Contact Information [phone] Advance Directives? Yes Advance Directives on File No: patient spouse reports its in her chart History Provided By Patient,Family Member Prior Living Arrangements House Household Members spouse Type of transporation used prior to Drives own vehicle admit Independent with ADL's Yes Is patient alert and oriented? Yes Patient/Family Preference Home with Home Health Barriers to Discharge No Comment Anticipate return home w/ spouse and services, however, therapy evals are still pending which will help guide dispo planning Discharge Plan Home Transportation Arrangement Home vs SNF, likely pov vs w/c van Referrals Initiated None needed Additional Comment Awaiting further assessment of need, therapies pending
--- NOTE | 2023-01-15 15:33 | PT-IP ANOTE ---
Physical therapy order received and chart reviewed. Posted posterior hip precautions in her room for safety after surgery. Pt has mild confusion today. Will plan to start physical therapy tomorrow.
--- NOTE | 2023-01-15 16:27 | PC.NURSE ---
Patient increasingly confused after surgery. Unable to finish her sentences and rambles on about random topics. Oriented to self and knows that she had surgery. Patient is unable to communicate if she is having pain- talked to Dr Adame about scheduling Tylenol to maintain adequate pain control measures.
--- NOTE | 2023-01-15 16:59 | PM.PN.1 ---
Subjective Subjective Date Patient Seen: 01/15/23 Time Patient Seen: 08:00 Interval history: She is quite grateful for her care here. She has no significant pain. She is confused, but nursing has confirmed with her family that she is near baseline. Exam Vital Signs (past 8 hours): - 01/15/23 11:33 01/15/23 11:38 01/15/23 11:43 Temperature 97.9 F Pulse Rate 63 64 65 Respiratory Rate 12 14 12 Blood Pressure 101/41 L 106/41 L 83/35 L Pulse Oximetry 93 95 94 Oxygen Delivery Method Room Air Room Air Room Air Oxygen Flow Rate 01/15/23 11:48 01/15/23 11:53 01/15/23 12:00 Temperature 97.9 F Pulse Rate 64 62 66 Respiratory Rate 16 13 12 Blood Pressure 93/42 L 105/38 L 107/41 L Pulse Oximetry 95 93 92 Oxygen Delivery Method Room Air Room Air Room Air Oxygen Flow Rate 01/15/23 12:20 01/15/23 12:20 01/15/23 12:50 Temperature 96.7 F L 96.7 F L 97.1 F L Pulse Rate 64 64 60 Respiratory Rate 14 14 16 Blood Pressure 113/45 L 113/45 L 115/60 Pulse Oximetry 95 95 94 Oxygen Delivery Method Oxygen Flow Rate 0 0 0 01/15/23 13:25 01/15/23 12:00 01/15/23 16:00 Temperature 97.2 F L Pulse Rate 60 Respiratory Rate 16 Blood Pressure 125/46 L Pulse Oximetry 92 92 94 Oxygen Delivery Method Room Air Room Air Oxygen Flow Rate 0 0 0 01/15/23 14:20 01/15/23 15:40 Temperature 97.8 F 97.8 F Pulse Rate 62 61 Respiratory Rate 18 18 Blood Pressure 118/45 L 107/46 L Pulse Oximetry 93 94 Oxygen Delivery Method Oxygen Flow Rate 0 0 Oxygen Delivery Method Room Air Oxygen Flow Rate 0 Narrative Exam Narrative: No acute distress Heart regular rate and rhythm Lungs clear to auscultation EXT: Mepilex dressing on the right elbow. This is taken down and reveals a superficial abrasion. Full range of motion. Right leg with bandage on hip which is clean, dry and intact Objective Labs 01/15/23 05:40 01/15/23 05:40 Labs: Laboratory Results - last 24 hr 01/15/23 01/15/23 01/15/23 05:40 05:40 05:40 WBC 9.6 RBC 4.42 Hgb 13.2 Hct 38.8 MCV 87.7 MCH 29.9 MCHC 34.1 RDW 13.6 Plt Count 206 Neut % (Auto) 84.3 H Lymph % (Auto) 9.5 L Bennett % (Auto) 5.8 Eos % (Auto) 0.2 L Baso % (Auto) 0.2 Neut # (Auto) 8100 H Lymph # (Auto) 900 L Bennett # (Auto) 600 Eos # (Auto) 0 Baso # (Auto) 0 Sodium 138 Potassium 3.6 Chloride 103 Carbon Dioxide 28 BUN 12 Creatinine 0.68 Estimated GFR > 60 BUN/Creatinine Ratio 17.6 Glucose 171 H Hemoglobin A1c Calcium 9.0 Magnesium 1.9 TSH 3.43 01/15/23 05:40 WBC RBC Hgb Hct MCV MCH MCHC RDW Plt Count Neut % (Auto) Lymph % (Auto) Bennett % (Auto) Eos % (Auto) Baso % (Auto) Neut # (Auto) Lymph # (Auto) Bennett # (Auto) Eos # (Auto) Baso # (Auto) Sodium Potassium Chloride Carbon Dioxide BUN Creatinine Estimated GFR BUN/Creatinine Ratio Glucose Hemoglobin A1c 6.8 H Calcium Magnesium TSH PFS Medical History HTN (hypertension) Pre-diabetes Surgical History H/O hand surgery Status post hernia repair Status post hysterectomy Family History Brother Age: 72 Diabetes mellitus Hypertension High cholesterol Father Diabetes mellitus Heart disease Hypertension Grandmother Stroke Grandmother Stroke Social History household members: spouse Smoking Status: Current every day smoker Assessment & Plan Assessment & Plan narrative: 1. R femoral neck fracture, pathologic due to likely osteoporosis. - s/p repair on 01/15 with ortho - with smoking and HTN history, have ordered pre-op EKG and CXR for evidence of underlying disease including heart or obstructive lung disease. She has no current symptoms of dyspnea on exertion or chest pain. - continue pain control overnight with oxycodone, tylenol, muscle relaxants. - PT/OT consults after OR 2. Daily smoker - no nicotine patch at this time. Provide as needed. Smokes about 1/4 ppd. 3. HTN - not currently on medications, likely elevated due to pain initially. Continue to monitor with q4 vitals. 4. history of DM - glucose appears controlled on admit labs. - okay for regular diet. - check an A1c. 5. Confusion - likely cognitive impairment, illness and recent surgery and anesthesia all contributing - monitor closely
[2023-01-15] MEDS: ACETAMINOPHEN 325 MG TABLET 650 MG PO (17:08)
[2023-01-15] MEDS: DOCUSATE 100 MG CAPSULE PO (20:37)
[2023-01-15] MEDS: methocarbamoL 500 MG TABLET PO (20:37)
[2023-01-16] VITALS (7 sets, daily range): BP systolic 114–142; BP diastolic 45–54; PULSE 57–61; RESP 16–20; TEMP 35.9–37.1; O2SAT 93–98
[2023-01-16] MEDS: LACTATED RINGERS 1,000 ML 100 ML IV (00:55)
[2023-01-16] MEDS: CEFAZOLIN 2 GM/100 ML PREMIX 100 ML IV (00:56)
[2023-01-16] MEDS: IBUPROFEN 600 MG TABLET PO ×4 (03:22→20:49)
[2023-01-16] MEDS: ACETAMINOPHEN 325 MG TABLET 650 MG PO ×3 (04:35→17:19)
[2023-01-16 06:01] LABS: Add Manual Diff / Slide Review NO; Basophils Absolute Auto 0 /uL (0-100); Basophils Percent Auto 0.2 % (0-2); Eosinophils Absolute Auto 100 /uL (0-450); Eosinophils Percent Auto 1.5 % (2-4); Hematocrit 33.9 % (36-46); Hemoglobin 11.6 g/dL (12.0-16.0); Lymphocytes Absolute Auto 600 /uL (1100-4500); Lymphocytes Percent Auto 7.5 % (25-40); Mean Corpuscular HGB Conc 34.2 % (30-36); Mean Corpuscular Volume 87.8 fL (80-100); Monocytes Absolute Auto 600 /uL (0-900); Monocytes Percent Auto 7.1 % (3-14); Neutrophils Absolute Auto 7100 /uL (1500-7000); Neutrophils Percent Auto 83.7 % (50-75); Platelet Count 161 X10^3/uL (150-400); Red Blood Cell Count 3.86 X10^6/uL (4.0-5.2); Red Cell Distribution Width 13.7 % (11.6-14.8); White Blood Cell Count 8.5 X10^3/uL (4.5-11.0)
[2023-01-16 06:10] LABS: BUN Creatinine Ratio 16.7 (6-22); Blood Urea Nitrogen 11 mg/dL (7-17); Calcium 8.5 mg/dL (8.4-10.2); Carbon Dioxide 27 mmol/L (22-32); Chloride 104 mmol/L (98-107); Estimated Glomerular Filt Rate > 60 mL/min (>60); Glucose 155 mg/dL (80-110); HEMOLYSIS < 15 (0-50); Magnesium 1.9 mg/dL (1.6-2.3); Potassium 3.5 mmol/L (3.4-5.1); Sodium 136 mmol/L (137-145)
--- NOTE | 2023-01-16 08:22 | PC.NURSE ---
Patient is alert and oriented x2. She is confused at times and states that she does not remember having surgery yesterday. Dressing to r.hip is cdi with aquacel in place and scattered dried drainage atop. She will be working with physical therapy today. CMS wnl and ppx2.
[2023-01-16] MEDS: POTASSIUM CHLORIDE 20 MEQ TAB 40 MEQ PO (08:38)
[2023-01-16] MEDS: ENOXAPARIN 40 MG/0.4 ML SYRINGE SUBCUT (08:38)
[2023-01-16] MEDS: DOCUSATE 100 MG CAPSULE PO ×2 (08:38→20:48)
[2023-01-16] MEDS: INSULIN LISPRO 100 UNIT/ML 3ML VIAL SUBCUT ×3 (08:39→17:20)
--- NOTE | 2023-01-16 09:54 | PT.IIE ---
Current Diagnoses Age-related osteoporosis with current pathological fracture, right femur, initial encounter for fracture (01/14/23) Fracture of unspecified part of neck of right femur, initial encounter for closed fracture (01/14/23) Surgery Performed Operation Date: 01/15/23 09:00 Actual Procedures p Hip Hemiarthroplasty Will(Right) - Jessica Werner MD Surgical History (Last Reviewed 01/15/23 @ 08:08 by Jessica Werner MD) H/O hand surgery Status post hernia repair Status post hysterectomy Medical History (Last Reviewed 01/15/23 @ 08:08 by Jessica Werner MD) HTN (hypertension) Pre-diabetes Physical Therapy Inpatient Evaluation/Re-Eval M1 PT/OT-IP Prior Functional Status Start: 01/15/23 15:35 Freq: NEEDED Status: Active Protocol: Document 01/15/23 15:35 DLM (Rec: 01/15/23 15:38 DLM [id number]) Medical Review Prior Functional Status Medical History Reviewed Yes Diet/Fluid Consistency Regular Communication mild speech 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 Social History Household Members spouse Living Arrangements House Number of Floors (Floors) Two Floors Number of Stairs To Enter/Railing? 4-5 with rail Additional Social History Comment [place] a floor at their home. Where they are staying has the bedroom on the second floor and has steps to enter the house. Her questions if pt could sleep on the couch on the first floor. They will be back in their home on Jan 25 which is one level. They have friends with equipment that they can borrow or they will borrow from [employer]. M2 PT-IP Current Condition Start: 01/15/23 15:35 Freq: NEEDED Status: Active Protocol: Document 01/16/23 09:54 AW (Rec: 01/16/23 10:20 AW [id number]) Physical Therapy Current Condition Current Condition Evaluation Date 01/16/23 Treatment Diagnosis R femoral neck fx x/p hemiarthroplasty; GLF; impaired mobility Onset Date 01/14/23 M3 PT-IP Subjective Start: 01/15/23 15:35 Freq: NEEDED Status: Active Protocol: Document 01/16/23 09:54 AW (Rec: 01/16/23 10:20 AW [id number]) Subjective Physical Therapy Visit Type Type Initial Evaluation Visit Start Time : Visit Stop Time :54 Total Visit Minutes 31 Physical Therapy Visit Comments Patient Comments Pt is willing to participate with PT, reports minimal pain at rest but anticipates increased pain with mobility. Patient Goals Pt and her spouse are open to rehab options Therapy Pain Assessment Pain When Pain Assessed FLACC Pain Present Pain Present Pain Reported FLACC Pain Scale Face Occasional grimace/frown Legs Uneasy, restless, tense Activity Squirming,shifting Cry Moans/whimpers/complains Consolability Reassurable with touch FLACC Total 5 M4 PT-IP Mobility and Gait Start: 01/15/23 15:35 Freq: NEEDED Status: Active Protocol: Document 01/16/23 09:54 AW (Rec: 01/16/23 10:20 AW [id number]) PT-Bed Mobility Assessment Supine to Sit Supine to Sit Moderate Assistance,Maximum Assistance,1 Person Assistance ,Head of Bed Elevated,Bedrails Scooting Scooting to Edge of Bed Maximum Assistance PT-Transfer Assessment Sit to and From Stand Sit to and from Stand Moderate Assistance,1 Person Assistance,Use of Upper Extremities Equipment Transfer Assistive Device Bed Rail,Gait Belt,Front Wheeled Walker Orthotic/Prosthetic Devices or Brace: No Transfers Transfer Destination Chair Transfer Technique Stand Step Pivot Transfer Ability Level of Assist Moderate Assistance,Use of Upper Extremities Comments Mobility Comments Pt was lying in bed as PT arrived, agreeable to therapy. Pt is aware she has posterior hip precautions but does not recall them. She needs cues to look at the whiteboard where they are posted. RLE rests in internal rotation and pt requires frequent cues for neutral hip alignment. Would benefit from abduction pillow (spoke with materials mgmt who will deliver to room). Mod/ max A for supine to sit transfer with PT providing assist primarily via draw pad as pt made liberal use of bed features. Pt's spouse arrived at this time. Pt sat EOB with slight lean toward left secondary to right hip pain. She stood with verbal and tactile cues for hip flexion precaution and used FWW to steady herself. She was able to move RLE into position for best GEETA but struggled with RLE weightbearing. She was able to shift her weight laterally with some return demo of education on using BUE to off-weight RLE. Pt sat EOB , reporting pain and fatigue. She agreed to trial transfer to the chair, needing mod A to stand and to pivot toward chair set up on her left side. Pt was left in the chair with call light in reach, spouse remained in room. Due to pt forgetfulness, advised RN of possible need for chair alarm. Gait Assessment Gait Gait Assistance Required: Moderate Assistance,1 Person Assist Distance (Feet) 3 Able to Maintain Weight Bearing Status Yes During Gait Assistive Devices Assistive Device Gait Belt,Front Wheeled Walker Orthotic/Prosthetic Devices or Brace: No Gait Deviations General Gait Pattern Antalgic,Decreased Stride Length,Decreased Feet Clearance,Flexed Trunk Factors Limiting Gait Function Factors Limiting Gait Function Decreased Strength,Pain,Poor Balance Comments Gait Comments Steps taken during transfer only. PT-Balance Assessment Sitting Balance and Reactions Static Sitting Balance Ability Good Dynamic Sitting Balance Ability Fair Standing Balance and Reactions Static Standing Balance Ability Fair Dynamic Standing Balance Ability Poor Device Used FWW Comments Other Balance Tests/Deviations/Treatment Benefits from cues to look : toward horizon, fix gaze, and focus on UE weightbearing on walker. M5 PT-IP Objective Assessments Start: 01/15/23 15:35 Freq: NEEDED Status: Active Protocol: Document 01/16/23 09:54 AW (Rec: 01/16/23 10:20 AW [id number]) Orientation Orientation/Cognition Level of Alertness Confusional State Orientation Name,Place,Situation Safety Awareness Decreased Safety Awareness Comments Pt presents with confusion but is able to follow one to two step commands Gross Range of Motion Upper Extremity ROM Assessment Within Functional Limits Lower Extremity ROM Assessment Right Impaired Strength Lower Extremity Strength Hip flexion R 3-/5; L 4-/5 Knee ext R 4/5; L 4+/5; flex B 4/5 Ankle DF R 4/5; L 4+/5 Comments Strength Comments Pt quite hesitant and limited by pain Sensation Assessment Sensation Gross Sensation WNL M6 PT-IP Treatment Start: 01/15/23 15:35 Freq: NEEDED Status: Active Protocol: Document 01/16/23 09:54 AW (Rec: 01/16/23 10:29 AW [id number]) Physical Therapy Treatment Exercises Exercises Ankle Pumps,Gluteal Sets,Quad Sets,Heel Slides Education Education Provided Precautions,Weight Bearing Status Other Treatments Other Treatment Performed Educated on functional implications of posterior hip precautions with regard to mobility and ADL's. Pt to benefit from OT evaluation. M7 PT-IP Assessment and Plan Start: 01/15/23 15:35 Freq: NEEDED Status: Active Protocol: Document 01/16/23 09:54 AW (Rec: 01/16/23 10:29 AW [id number]) PT Summary Assessment and Plan Potential Rehabilitation Potential Good Status of Condition at Evaluation Evolving Summary Impairments Pain,ROM,Strength,Balance, Cognition,Bed Mobility, Transfers,Gait Assessment Summary Rajwinder is a 77 yo woman seen for PT evaluation while admitted after a ground level fall. She sustained right femoral neck fracture and is now POD1 s/p hemiarthroplasty. She is to maintain WBAT and posterior hip precautions for 6 weeks. At baseline, pt is independent without AD and ambulates community distance. She lives with her spouse in a single level home but they are currently staying in a two story home with stairs while a remodeling project is being finished at home. CLOF: Pt is aware she has hip precautions but is unable to recall them and needs assist to functionally implement same. She is requiring mod to max assist for bed mobility and transfers, unable to progress to functional gait at this time. Acute PT will continue to work with her on functional mobility. PT recommends transition to SNF for 24/7 assist and daily rehab to assist with her functional recovery. Goals Bed Mobility Goal Contact Guard Assistance Transfer Goal Standby Assistance,Front Wheeled Walker Gait Goal Standby Assistance,Front Wheel Walker Gait Distance 75 Days to Meet Goals 10 Frequency of Treatment Frequency Of Treatment Twice a Day Treatment Plan Physical Therapy Treatment Plan Bed Mobility Training,Transfer Training,Gait Training, Therapeutic Exercise,Balance Retraining,Post Op Education, Discharge Planning,Hot or Cold Pack,Neuromuscular Re-ed Other Recommendations and Next Treatment reinforce precautions, Focus transfers, ther ex, gait with chair follow as tolerated Precautions Posterior Hip Precautions No Hip Flexion > 90 degrees,No Hip Internal Rotation,No Hip Adduction Weight Bearing Status Weight Bearing Status Weight Bear as Tolerated Recommendations To Nursing Amount of Assist Needed 1 Person Assist,2 Person Assist Discharge Recommendations PT Discharge Recommendations SNF Rehab Transportation Needs at Discharge Wheelchair/Cabulance
--- NOTE | 2023-01-16 13:34 | P.PN_ITS ---
Exam Vital Signs (past 8 hours): - 01/16/23 08:16 01/16/23 08:00 01/16/23 12:00 Temperature 98.8 F Pulse Rate 59 L Respiratory Rate 16 Blood Pressure 126/54 L Pulse Oximetry 98 Oxygen Delivery Method Room Air Room Air Oxygen Flow Rate 0 Oxygen Delivery Method Room Air Oxygen Flow Rate 0 Objective Labs 01/16/23 05:15 01/16/23 05:15 Labs: Laboratory Results - last 24 hr 01/16/23 01/16/23 05:15 05:15 WBC 8.5 RBC 3.86 L Hgb 11.6 L Hct 33.9 L MCV 87.8 MCH 30.0 MCHC 34.2 RDW 13.7 Plt Count 161 Neut % (Auto) 83.7 H Lymph % (Auto) 7.5 L [place] % (Auto) 7.1 Eos % (Auto) 1.5 L Baso % (Auto) 0.2 Neut # (Auto) 7100 H Lymph # (Auto) 600 L [place] # (Auto) 600 Eos # (Auto) 100 Baso # (Auto) 0 Sodium 136 L Potassium 3.5 Chloride 104 Carbon Dioxide 27 BUN 11 Creatinine 0.66 Estimated GFR > 60 BUN/Creatinine Ratio 16.7 Glucose 155 H Calcium 8.5 Magnesium 1.9 PFSH Medical History HTN (hypertension) Pre-diabetes Surgical History H/O hand surgery Status post hernia repair Status post hysterectomy Family History Brother Age: 72 Diabetes mellitus Hypertension High cholesterol Father Diabetes mellitus Heart disease Hypertension Grandmother Stroke Grandmother Stroke Social History household members: spouse Smoking Status: Current every day smoker Assessment & Plan Assessment & Plan narrative: POD#1 s/p right hip hemiarthroplasty. Has not ambulated yet with PT. On exam, patient is out of bed sitting in chair comfortably. Dressing clean dry intact. No s/s of DVT to RLE. Will plan for PT to work on mobilization and plan for inpatient rehab placement. Continue current medical management.
--- NOTE | 2023-01-16 14:49 | PT.IPTN ---
Current Diagnoses Age-related osteoporosis with current pathological fracture, right femur, initial encounter for fracture (01/14/23) Fracture of unspecified part of neck of right femur, initial encounter for closed fracture (01/14/23) Surgery Performed Operation Date: 01/15/23 09:00 Actual Procedures p Hip Hemiarthroplasty Will(Right) - Jessica Werner MD Physical Therapy Treatment Note M2 PT-IP Current Condition Start: 01/15/23 15:35 Freq: NEEDED Status: Active Protocol: Document 01/16/23 09:54 AW (Rec: 01/16/23 10:20 AW [id number]) Physical Therapy Current Condition Current Condition Evaluation Date 01/16/23 Treatment Diagnosis R femoral neck fx x/p hemiarthroplasty; GLF; impaired mobility Onset Date 01/14/23 M3 PT-IP Subjective Start: 01/15/23 15:35 Freq: NEEDED Status: Active Protocol: Document 01/16/23 14:49 AW (Rec: 01/16/23 15:20 AW [id number]) Subjective Physical Therapy Visit Type Type Treatment Note Visit Start Time 14:24 Visit Stop Time 14:49 Total Visit Minutes 25 Number of [employer] Visits 0 Physical Therapy Visit Comments Patient Comments Pt has been sitting up in the chair since AM PT. She feels ready to return to bed. Patient Goals Try to walk. Therapy Pain Assessment FLACC Pain Scale Face Occasional grimace/frown Legs Normal position; relaxed Activity Quiet, moves easily Cry Moans/whimpers/complains Consolability Reassurable with touch FLACC Total 3 M4 PT-IP Mobility and Gait Start: 01/15/23 15:35 Freq: NEEDED Status: Active Protocol: Document 01/16/23 14:49 AW (Rec: 01/16/23 15:20 AW [id number]) PT-Bed Mobility Assessment Sit to Supine Sit to Supine Moderate Assistance,1 Person Assistance PT-Transfer Assessment Sit to and From Stand Sit to and from Stand Moderate Assistance,1 Person Assistance,Use of Upper Extremities Equipment Transfer Assistive Device Gait Belt,Front Wheeled Walker Transfers Transfer Destination Bed Transfer Technique Stand Step Pivot Transfer Ability Level of Assist Moderate Assistance,Use of Upper Extremities Comments Mobility Comments Pt very agreeable to mobilization attempts. PT cued pt to scoot forward on the chair, position her feet, and push off the chair arms for sit to stand. Pt required mod A to get into standing while observing posterior hip precautions. She tends to lean too far forward which increases the level of assist required. Pt was more stable standing with walker this PM and was able to progress to ambulation, walking 8 feet before turning and side stepping at EOB to reach optimal position in bed. She sat with cues and assist for precautions, and returned to supine, ready to sleep. Gait Assessment Gait Gait Assistance Required: Minimum Assistance,Moderate Assistance,1 Person Assist Distance (Feet) 12 Able to Maintain Weight Bearing Status Yes During Gait Assistive Devices Assistive Device Gait Belt,Front Wheeled Walker Orthotic/Prosthetic Devices or Brace: No Gait Deviations General Gait Pattern Antalgic,Decreased Stride Length,Decreased Feet Clearance,Flexed Trunk,Step-to Gait Factors Limiting Gait Function Factors Limiting Gait Function Decreased Strength,Pain,Poor Balance Comments Gait Comments Good UE weightbearing to off- load RLE. PT-Balance Assessment Sitting Balance and Reactions Static Sitting Balance Ability Good Dynamic Sitting Balance Ability Fair Standing Balance and Reactions Static Standing Balance Ability Fair Dynamic Standing Balance Ability Fair Device Used FWW Comments Other Balance Tests/Deviations/Treatment Initial tendency to lean too : heavily on walker improved with cues for hip extension. M5 PT-IP Objective Assessments Start: 01/15/23 15:35 Freq: NEEDED Status: Active Protocol: Document 01/16/23 09:54 AW (Rec: 01/16/23 10:20 AW [id number]) Orientation Orientation/Cognition Level of Alertness Confusional State Orientation Name,Place,Situation Safety Awareness Decreased Safety Awareness Comments Pt presents with confusion but is able to follow one to two step commands Gross Range of Motion Upper Extremity ROM Assessment Within Functional Limits Lower Extremity ROM Assessment Right Impaired Strength Lower Extremity Strength Hip flexion R 3-/5; L 4-/5 Knee ext R 4/5; L 4+/5; flex B 4/5 Ankle DF R 4/5; L 4+/5 Comments Strength Comments Pt quite hesitant and limited by pain Sensation Assessment Sensation Gross Sensation WNL M6 PT-IP Treatment Start: 01/15/23 15:35 Freq: NEEDED Status: Active Protocol: Document 01/16/23 14:49 AW (Rec: 01/16/23 15:20 AW [id number]) Physical Therapy Treatment Education Education Provided Precautions,Weight Bearing Status,Safety M7 PT-IP Assessment and Plan Start: 01/15/23 15:35 Freq: NEEDED Status: Active Protocol: Document 01/16/23 14:49 AW (Rec: 01/16/23 15:20 AW [id number]) PT Summary Assessment and Plan Potential Rehabilitation Potential Good Summary Impairments Pain,ROM,Strength,Balance, Cognition,Bed Mobility, Transfers,Gait Progress Towards Goals Progressing Toward Goals,Slow Progress due to Pain Assessment Summary Rajwinder was able to progress nicely with ambulation but continues to require frequent reorientation to her posterior hip precautions. She is at high risk for dislocation without such assist. PT firmly recommending SNF rehab to assist with her functional recovery. Abduction pillow was placed for use in bed in order to assist with neutral hip positioning. Goals Bed Mobility Goal Contact Guard Assistance Transfer Goal Standby Assistance,Front Wheeled Walker Gait Goal Standby Assistance,Front Wheel Walker Gait Distance 75 Days to Meet Goals 10 Frequency of Treatment Frequency Of Treatment Twice a Day Treatment Plan Physical Therapy Treatment Plan Bed Mobility Training,Transfer Training,Gait Training, Therapeutic Exercise,Balance Retraining,Post Op Education, Discharge Planning,Hot or Cold Pack,Neuromuscular Re-ed Other Recommendations and Next Treatment reinforce precautions, Focus transfers, ther ex, gait with chair follow as tolerated Precautions Posterior Hip Precautions No Hip Flexion > 90 degrees,No Hip Internal Rotation,No Hip Adduction Other Precautions abduction pillow for bed Weight Bearing Status Weight Bearing Status Weight Bear as Tolerated Recommendations To Nursing Amount of Assist Needed 1 Person Assist Discharge Recommendations PT Discharge Recommendations SNF Rehab Transportation Needs at Discharge Wheelchair/Cabulance
--- NOTE | 2023-01-16 15:44 | PM.PN.1 ---
Subjective Subjective Date Patient Seen: 01/16/23 Time Patient Seen: 08:00 Interval history: Her pain is well controlled. Exam Vital Signs (past 8 hours): - 01/16/23 08:16 01/16/23 08:00 01/16/23 12:00 Temperature 98.8 F Pulse Rate 59 L Respiratory Rate 16 Blood Pressure 126/54 L Pulse Oximetry 98 Oxygen Delivery Method Room Air Room Air Oxygen Flow Rate 0 Oxygen Delivery Method Room Air Oxygen Flow Rate 0 Narrative Exam Narrative: No acute distress Heart regular rate and rhythm Lungs clear to auscultation EXT: Mepilex dressing on the right elbow. Right leg with bandage on hip which is clean, dry and intact Objective Labs 01/16/23 05:15 01/16/23 05:15 Labs: Laboratory Results - last 24 hr 01/16/23 01/16/23 05:15 05:15 WBC 8.5 RBC 3.86 L Hgb 11.6 L Hct 33.9 L MCV 87.8 MCH 30.0 MCHC 34.2 RDW 13.7 Plt Count 161 Neut % (Auto) 83.7 H Lymph % (Auto) 7.5 L [place] % (Auto) 7.1 Eos % (Auto) 1.5 L Baso % (Auto) 0.2 Neut # (Auto) 7100 H Lymph # (Auto) 600 L [place] # (Auto) 600 Eos # (Auto) 100 Baso # (Auto) 0 Sodium 136 L Potassium 3.5 Chloride 104 Carbon Dioxide 27 BUN 11 Creatinine 0.66 Estimated GFR > 60 BUN/Creatinine Ratio 16.7 Glucose 155 H Calcium 8.5 Magnesium 1.9 PFSH Medical History HTN (hypertension) Pre-diabetes Surgical History H/O hand surgery Status post hernia repair Status post hysterectomy Family History Brother Age: 72 Diabetes mellitus Hypertension High cholesterol Father Diabetes mellitus Heart disease Hypertension Grandmother Stroke Grandmother Stroke Social History household members: spouse Smoking Status: Current every day smoker Assessment & Plan Assessment & Plan narrative: 1. R femoral neck fracture, pathologic due to likely osteoporosis. - s/p repair on 01/15 with ortho - continue pain control overnight with oxycodone, tylenol, muscle relaxants. - PT/OT working with patient -per ortho recommend lovenox on discharge for DVT ppx 2. Daily smoker - no nicotine patch at this time. Provide as needed. Smokes about 1/4 ppd. 3. HTN - not currently on medications, likely elevated due to pain initially. Continue to monitor with q4 vitals. 4. history of DM - glucose appears controlled on admit labs. - okay for regular diet. - check an A1c. 5. Confusion - likely cognitive impairment, illness and recent surgery and anesthesia all contributing - monitor closely Dispo: Patient medically stable for discharge. Awaiting snf placement
[2023-01-16] MEDS: methocarbamoL 500 MG TABLET PO (20:48)
[2023-01-16] MEDS: OXYCODONE IR 5 MG TABLET PO (20:49)
[2023-01-17 00:52] VITALS: O2SAT 97
[2023-01-17] MEDS: ACETAMINOPHEN 325 MG TABLET 650 MG PO ×2 (05:48→12:44)
[2023-01-17 05:58] LABS: Add Manual Diff / Slide Review NO; Basophils Absolute Auto 0 /uL (0-100); Basophils Percent Auto 0.5 % (0-2); Eosinophils Absolute Auto 200 /uL (0-450); Eosinophils Percent Auto 2.1 % (2-4); Hematocrit 35.4 % (36-46); Lymphocytes Absolute Auto 900 /uL (1100-4500); Lymphocytes Percent Auto 10.1 % (25-40); Mean Corpuscular HGB Conc 34.1 % (30-36); Mean Corpuscular Volume 88.1 fL (80-100); Monocytes Absolute Auto 600 /uL (0-900); Neutrophils Absolute Auto 7300 /uL (1500-7000); Neutrophils Percent Auto 80.3 % (50-75); Platelet Count 178 X10^3/uL (150-400); Red Blood Cell Count 4.02 X10^6/uL (4.0-5.2); Red Cell Distribution Width 13.7 % (11.6-14.8); White Blood Cell Count 9.1 X10^3/uL (4.5-11.0)
[2023-01-17 06:09] LABS: BUN Creatinine Ratio 20.3 (6-22); Blood Urea Nitrogen 15 mg/dL (7-17); Calcium 9.1 mg/dL (8.4-10.2); Carbon Dioxide 27 mmol/L (22-32); Chloride 104 mmol/L (98-107); Estimated Glomerular Filt Rate > 60 mL/min (>60); Glucose 129 mg/dL (80-110); HEMOLYSIS < 15 (0-50); Magnesium 2.1 mg/dL (1.6-2.3); Potassium 3.9 mmol/L (3.4-5.1); Sodium 137 mmol/L (137-145)
[2023-01-17 07:40] VITALS: O2SAT 97
[2023-01-17] MEDS: methocarbamoL 500 MG TABLET PO (08:08)
[2023-01-17] MEDS: IBUPROFEN 600 MG TABLET PO (08:08)
[2023-01-17] MEDS: ENOXAPARIN 40 MG/0.4 ML SYRINGE SUBCUT (08:08)
[2023-01-17] MEDS: DOCUSATE 100 MG CAPSULE PO (08:09)
[2023-01-17 08:13] VITALS: BP 137/41; PULSE 62; RESP 18; TEMP 36.8; O2SAT 98
--- NOTE | 2023-01-17 08:45 | PT.IPTN ---
Current Diagnoses Age-related osteoporosis with current pathological fracture, right femur, initial encounter for fracture (01/14/23) Fracture of unspecified part of neck of right femur, initial encounter for closed fracture (01/14/23) Surgery Performed Operation Date: 01/15/23 09:00 Actual Procedures p Hip Hemiarthroplasty Will(Right) - Jessica Werner MD Physical Therapy Treatment Note M2 PT-IP Current Condition Start: 01/15/23 15:35 Freq: NEEDED Status: Active Protocol: Document 01/16/23 09:54 AW (Rec: 01/16/23 10:20 AW [id number]) Physical Therapy Current Condition Current Condition Evaluation Date 01/16/23 Treatment Diagnosis R femoral neck fx x/p hemiarthroplasty; GLF; impaired mobility Onset Date 01/14/23 M3 PT-IP Subjective Start: 01/15/23 15:35 Freq: NEEDED Status: Active Protocol: Document 01/17/23 10:44 TS (Rec: 01/17/23 11:05 TS [id number]) Subjective Physical Therapy Visit Type Type Treatment Note Visit Start Time 08:45 Visit Stop Time 09:15 Total Visit Minutes 30 Number of SPEECH WRITER Visits 1 Physical Therapy Visit Comments Patient Comments Pt found resting in bed, somewhat confused on why wedge is between her legs, agreeable to PT. Therapy Pain Assessment Pain When Pain Assessed During Mobility Pain Present Pain Present Pain Reported M4 PT-IP Mobility and Gait Start: 01/15/23 15:35 Freq: NEEDED Status: Active Protocol: Document 01/17/23 10:44 TS (Rec: 01/17/23 11:05 TS [id number]) PT-Bed Mobility Assessment Supine to Sit Supine to Sit Moderate Assistance,1 Person Assistance,Head of Bed Elevated,Bedrails Scooting Scooting to Edge of Bed Minimal Assistance PT-Transfer Assessment Sit to and From Stand Sit to and from Stand Minimal Assistance,Maximum Assistance,1 Person Assistance ,Use of Upper Extremities Equipment Transfer Assistive Device Gait Belt,Front Wheeled Walker Orthotic/Prosthetic Devices or Brace: No Comments Mobility Comments Pt agreeable to OOB mobility. Pt recalled 0/3 posterior hip precautions prior to mobility. Supine to sit ModA for RLE over to EOB, pt required cues for uprighting turnk with handrail assist. She scooted to EOB with Mariela for RLE, provided cues for decreased hip flexion and use of handrail. Sit to stand from bed Mariela and required some stabilization of FWW, pt has some difficulty transitioning hands to FWW. She ambulated ~ 15' CGA with slow step to gait and use of FWW to bedside chair, has no buckling or LOB. Pt sat in chair, recalled 2/3 precautions. Sit to stand from chair MaxA w/FWW, provided cues for hip precautions and BUE support pushing from arms of chair. Stand to sit Mariela w/cues for hip precautions and use of arms of chair for slow eccentric control into chair. Pt was left in chair, again recalled 2/3 precautions(no crossing of LEs), call light nearby, chair alarm on, all needs met. Gait Assessment Gait Gait Assistance Required: Contact Guard Assist,1 Person Assist Distance (Feet) 15 Able to Maintain Weight Bearing Status Yes During Gait Assistive Devices Assistive Device Gait Belt,Front Wheeled Walker Orthotic/Prosthetic Devices or Brace: No Gait Deviations General Gait Pattern Antalgic,Decreased Stride Length,Decreased Feet Clearance,Flexed Trunk,Step-to Gait Factors Limiting Gait Function Factors Limiting Gait Function Decreased Strength,Pain,Poor Balance Comments Gait Comments See mobility comments. PT-Balance Assessment Sitting Balance and Reactions Static Sitting Balance Ability Good Dynamic Sitting Balance Ability Good Standing Balance and Reactions Static Standing Balance Ability Fair Dynamic Standing Balance Ability Fair Device Used FWW Comments Other Balance Tests/Deviations/Treatment Requires cueing for decreased : hip flexion sitting EOB. M5 PT-IP Objective Assessments Start: 01/15/23 15:35 Freq: NEEDED Status: Active Protocol: Document 01/16/23 09:54 AW (Rec: 01/16/23 10:20 AW [id number]) Orientation Orientation/Cognition Level of Alertness Confusional State Orientation Name,Place,Situation Safety Awareness Decreased Safety Awareness Comments Pt presents with confusion but is able to follow one to two step commands Gross Range of Motion Upper Extremity ROM Assessment Within Functional Limits Lower Extremity ROM Assessment Right Impaired Strength Lower Extremity Strength Hip flexion R 3-/5; L 4-/5 Knee ext R 4/5; L 4+/5; flex B 4/5 Ankle DF R 4/5; L 4+/5 Comments Strength Comments Pt quite hesitant and limited by pain Sensation Assessment Sensation Gross Sensation WNL M6 PT-IP Treatment Start: 01/15/23 15:35 Freq: NEEDED Status: Active Protocol: Document 01/17/23 10:44 TS (Rec: 01/17/23 11:05 TS [id number]) Physical Therapy Treatment Education Education Provided Precautions,Weight Bearing Status,Safety Other Treatments Other Treatment Performed Educated pt on posterior hip precautions. M7 PT-IP Assessment and Plan Start: 01/15/23 15:35 Freq: NEEDED Status: Active Protocol: Document 01/17/23 10:44 TS (Rec: 01/17/23 11:05 TS [id number]) PT Summary Assessment and Plan Potential Rehabilitation Potential Good Summary Impairments Pain,ROM,Strength,Balance, Cognition,Bed Mobility, Transfers,Gait Progress Towards Goals Progressing Toward Goals Assessment Summary Rajwinder is making some progress with her mobility this session. She progressed her gait to ~15' CGA with no buckling or LOB. She requires max cueing for all mobility and continues to require frequent orientation to her hip precautions, after multiple attempts recalled 2/3 (no crossing of legs). PT continues to recommend SNF. Goals Bed Mobility Goal Contact Guard Assistance Transfer Goal Standby Assistance,Front Wheeled Walker Gait Goal Standby Assistance,Front Wheel Walker Gait Distance 75 Days to Meet Goals 10 Frequency of Treatment Frequency Of Treatment Twice a Day Treatment Plan Physical Therapy Treatment Plan Bed Mobility Training,Transfer Training,Gait Training, Therapeutic Exercise,Balance Retraining,Post Op Education, Discharge Planning,Hot or Cold Pack,Neuromuscular Re-ed Other Recommendations and Next Treatment reinforce precautions, Focus transfers, ther ex, gait with chair follow as tolerated Precautions Posterior Hip Precautions No Hip Flexion > 90 degrees,No Hip Internal Rotation,No Hip Adduction Other Precautions abduction pillow for bed Weight Bearing Status Weight Bearing Status Weight Bear as Tolerated Recommendations To Nursing Amount of Assist Needed 1 Person Assist Discharge Recommendations PT Discharge Recommendations SNF Rehab Transportation Needs at Discharge Wheelchair/Cabulance
--- NOTE | 2023-01-17 09:06 | P.DS_ITS ---
History of Present Illness History of Present Illness Date Patient Seen: 01/17/23 Time Patient Seen: 09:06 Chief complaint: pelvic pain, Syncope Narrative: This is a 77 year old female with PMH of pre-diabetes, and HTN currently diet controlled, daily smoker she states who presented after a mechanical fall with R hip pain. Patient was on a walk, tripped on an uneven sidewalk and had instant pain. She denies preceeding dizziness, chest pain, palpitations. She denies recent dyspnea on exertion or chest pain. Imaging in the ER showed a R femoral neck fracture. Orthopedic surgery plans to perform operative interventions tomorrow morning. She was admitted to hospitalist service for further management. Discharge Providers Provider Date of admission: 01/14/23 15:13 Discharge Date: 01/17/23 Primary care physician: Georges Bazan MD Consults: 01/14/23 16:51 Consult to Orthopedic Surgery Routine Comment: Consulting Provider: Miguel Guy Reason for consultation: R femoral neck fx Has provider been notified: Yes 01/15/23 12:08 Consult to Discharge Planning Routine Comment: home vs snf Consult to Occupational Therapy Evaluate & Treat Comment: Physician Instructions: Evaluate and treat Consult to Physical Therapy Evaluate & Treat Comment: php x 6 wks (hemiarthroplasty) Physician Instructions: post op IRMA protocol Discharge provider: Chad Gonzalez DO Summary Hospital Course Discharge Diagnosis: 1. R femoral neck fracture, pathologic due to likely osteoporosis. 2. Daily smoker 3. HTN, chronic 4. Type 2 diabetes 5. Acute delirium due to hospitalization with possible chronic cognitive impairment. Hospital Course: This is a 77 F with PMH of tobacco use, HTN, DM not on any medications who pres ented with right for mechanical fall. She was found to have a right femoral neck fracture, and ultimately underwent repair with Orthopedic surgery. She was noted to have a possible mass on chest radiograph as part of her initial evaluation, however CT was performed and showed no mass. Her blood pressures remained controlled without medications while admitted, and her A1c came back at 6.8%, which given her age is controlled with diet alone. She did develop some confusion over the course of her stay which is suspected to be due to hospital delirium in the setting of possible chronic cognitive impairment. Further evaluation for cognitive impairment is recommended as an outpatient with her primary care provider after her course at nursing home facility. She was seen and evaluated by Physical and Occupational therapy, and given continued impairment in her ADLs as result of her femoral neck fracture she was recommended for nursing home facility at the time of discharge, where she was transferred. I have utilized all available immediate resources to obtain, update, or review the patient's current medications. And Lovenox per orthopedic surgery recommendations for DVT prophylaxis. She will follow-up with Orthopedic surgery as an outpatient. Time Spent with Patient Time spent: Greater than 30 minutes Exam Vital Signs (past 8 hours): - 01/17/23 08:13 Temperature 98.2 F Pulse Rate 62 Respiratory Rate 18 Blood Pressure 137/41 L Pulse Oximetry 98 Oxygen Flow Rate 0 Oxygen Delivery Method Room Air Oxygen Flow Rate 0 Narrative Exam Narrative: No acute distress Heart regular rate and rhythm Lungs clear to auscultation EXT: Mepilex dressing on the right elbow. Right leg with bandage on hip which is clean, dry and intact Objective Labs 01/17/23 05:15 01/17/23 05:15 Labs: Laboratory Results - last 24 hr 01/17/23 01/17/23 05:15 05:15 WBC 9.1 RBC 4.02 Hgb 12.0 Hct 35.4 L MCV 88.1 MCH 30.0 MCHC 34.1 RDW 13.7 Plt Count 178 Neut % (Auto) 80.3 H Lymph % (Auto) 10.1 L [place] % (Auto) 7.0 Eos % (Auto) 2.1 Baso % (Auto) 0.5 Neut # (Auto) 7300 H Lymph # (Auto) 900 L [place] # (Auto) 600 Eos # (Auto) 200 Baso # (Auto) 0 Sodium 137 Potassium 3.9 Chloride 104 Carbon Dioxide 27 BUN 15 Creatinine 0.74 Estimated GFR > 60 BUN/Creatinine Ratio 20.3 Glucose 129 H Calcium 9.1 Magnesium 2.1 PFSH Medical History HTN (hypertension) Pre-diabetes Surgical History H/O hand surgery Status post hernia repair Status post hysterectomy Family History Brother Age: 72 Diabetes mellitus Hypertension High cholesterol Father Diabetes mellitus Heart disease Hypertension Grandmother Stroke Grandmother Stroke Social History household members: spouse Smoking Status: Current every day smoker Discharge Plan Discharge Plan Patient Disposition: SNF Transfer to: [facility] Healthcare Provider Discharge Comment: You were admitted to the hospital with a hip fracture and underwent surgical repair. Transfer to [facility] for continued therapies. Weight bear as tolerated. Pillow between the legs while in bed. Posterior hip precautions for 6 weeks. Recommend DVT prophylaxis with subcutaneous Lovenox 40 mg subcutaneous daily for 28 days (4 weeks). Follow up in Orthopedic Clinic for staple removal in 2 weeks. Discharge orders & Medications Prescriptions: New methocarbamol 500 mg Tablet 500 mg PO QID PRN (Reason: Muscle Spasm) 7 Days Qty: 20 0RF acetaminophen 325 mg Tablet 650 mg PO Q6H 30 Days Qty: 240 0RF docusate sodium 100 mg Capsule 100 mg PO BID 14 Days Qty: 28 0RF ibuprofen 600 mg Tablet 600 mg PO Q6H PRN (Reason: Breakthrough Pain) 30 Days Qty: 90 0RF enoxaparin [Lovenox] 40 mg/0.4 mL Syringe 40 mg SUBCUT DAILY 26 Days Qty: 26 0RF Follow up/Referrals: Georges Bazan MD [Primary Care Provider] - Diet/Activity/Treatments Diet: Diet as Tolerated, Regular and Carb-consistent/Diabetic Liquid consistency: Normal/Thin Food texture: Regular Activity: weight bear As tolerated, posterior hip precautions for 6 weeks. [facility] Reason for rehabilitation: Post-operative therapy Rehab type: Physical therapy and Occupational therapy Restrictions to mobility: Posterior hip precautions x6 weeks Visit Report/Discharge Packet Stand Alone Forms: Patient Portal/API Discharge Data Primary Care Provider: Georges Bazan Discharges patient from system. Discharge Date/Time: 01/17/23 13:10
--- NOTE | 2023-01-17 09:13 | OT.IP.EVAL ---
Current Diagnoses Age-related osteoporosis with current pathological fracture, right femur, initial encounter for fracture (01/14/23) Fracture of unspecified part of neck of right femur, initial encounter for closed fracture (01/14/23) Surgery Performed Operation Date: 01/15/23 09:00 Actual Procedures p Hip Hemiarthroplasty Will(Right) - Jessica Werner MD Past Medical History (Last Reviewed 01/15/23 @ 08:08 by Jessica Werner MD) HTN (hypertension) Pre-diabetes Surgical History (Last Reviewed 01/15/23 @ 08:08 by Jessica Werner MD) H/O hand surgery Status post hernia repair Status post hysterectomy Occupational Therapy Inpatient Evaluation/Re-Eval M1 PT/OT-IP Prior Functional Status Start: 01/15/23 15:35 Freq: NEEDED Status: Active Protocol: Document 01/17/23 09:13 [facility] (Rec: 01/17/23 10:48 [facility] [id number]) Medical Review Prior Functional Status Medical History Reviewed Yes Diet/Fluid Consistency Regular Communication mild speech 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 Social History Household Members spouse Living Arrangements House Number of Floors (Floors) Two Floors Number of Stairs To Enter/Railing? 4-5 with rail Additional Social History Comment [place] a floor at their home. Where they are staying has the bedroom on the second floor and has steps to enter the house. Her questions if pt could sleep on the couch on the first floor. They will be back in their home on Jan 25 which is one level. They have friends with equipment that they can borrow or they will borrow from [employer]. M2 OT-IP Current Condition Start: 01/17/23 10:34 Freq: Status: Active Protocol: Document 01/17/23 09:13 [facility] (Rec: 01/17/23 10:48 [facility] [id number]) Occupational Therapy Current Condition Current Condition Evaluation Date 01/17/23 Treatment Diagnosis S/p Right femoral neck fx s/p R IRMA Diagnosis Onset Date 01/14/23 Post Operative Precautions Posterior Hip Precautions No Hip Flexion > 90 degrees,No Hip Internal Rotation,No Hip Adduction M3 OT- IP Subjective and Pain Start: 01/17/23 10:34 Freq: Status: Active Protocol: Document 01/17/23 09:13 [facility] (Rec: 01/17/23 10:48 [facility] [id number]) OT- Subjective Occupational Therapy Visit Type Type Initial Evaluation Visit Start Time 09:13 Visit Stop Time 09:41 Total Visit Minutes 28 Occupational Therapy Visit Comments Patient Comments Pt agreed to get up to do grooming needs at the sink. Patient/Caregiver Goals To get better. OT Pain Assessment Pain When Pain Assessed During Mobility Pain Present Pain Present Pain Reported Location right hip Pain Behaviors Facial Grimacing,Guarding M4 OT- IP ADL's Start: 01/17/23 10:34 Freq: Status: Active Protocol: Document 01/17/23 09:13 [facility] (Rec: 01/17/23 10:48 [facility] [id number]) OT [id number] Comments OT Self-Feeding Comments No issues noted. OT ADL-Grooming General Evaluation Grooming Ability Standby Assistance Areas Needing Assistance Retrieving/Set-up of Grooming Items Comments OT Grooming Comments Pt able to do while standing with FWW in front of her. OT ADL-Oral Care General Eval Oral Care Ability Independent OT ADL-Dressing General Eval Lower Body Dressing Ability Maximum Assistance Areas Needing Assistance Underpants/Brief,Socks OT ADL-Toileting Comments OT Toileting Comments Pt did not have to go. OT ADL-Bathing Bathing Type Bathing Type Sponge Bath General Evaluation Bathing Ability Maximal Assistance Comments OT Bathing Comments Pt able to assist for sponge bathing for LB, back, and pericare needs. M5 OT- IP IADL's Start: 01/17/23 10:34 Freq: Status: Active Protocol: Document 01/17/23 09:13 [facility] (Rec: 01/17/23 10:48 [facility] [id number]) OT-Instrumental Activities of Daily Living Deficits IADL Deficits Identified Deficits Home Safety Awareness Awareness of Need for Assistance at Home Decreased Awareness Home Safety Comments Prior pt's assist with her needs. Medication Management Medication Management Caregiver Administers Money Management Money Management Caregiver Provides Assistance Meal Preparation Meal Preparation Caregiver Provides Assist Training Mgr Training Mgr Caregiver Provides Assist M6 OT- IP Functional Cognition Start: 01/17/23 10:34 Freq: Status: Active Protocol: Document 01/17/23 09:13 [facility] (Rec: 01/17/23 10:48 [facility] [id number]) Cognitive Factors Limiting Selfcare Function Cognitive Ability Level of Alertness Alert Patient Orientation Name,Place,Situation Attention Span Ability Capable of Focused Attention, Capable of Sustained Attention Ability to Follow Commands Able to Follow One Step Commands with Increased Time, Able to Follow One Step Commands with Repetition Memory Description Short Term Impaired Safety Awareness Decreased Ability to Apply Precautions Cognitive Comments Cognitive Assessment Comments Pt needing step by step cues to follow her hip precautions for ADl and mobility needs. Pt is cooperative and pleasant and just needing reminders for her precautions. OT- Vision and Hearing OT- Hearing Assessment OT- Hearing Assessment WFL OT- Vision Assessment Visual Acuity Glasses All The Time M7 OT- IP Mobility and Balance Start: 01/17/23 10:34 Freq: Status: Active Protocol: Document 01/17/23 09:13 [facility] (Rec: 01/17/23 10:48 [facility] [id number]) OT-Transfer Assessment Sit to and From Stand Sit to and from Stand Moderate Assistance Transfers Transfer Ability Minimal Assistance Technique Transfer Destination Chair Devices Transfer Assistive Devices Gait Belt,Front Wheeled Walker Comments Mobility Comments MAX AX 1 to stand to FWW and cue to slide her RLE forwards prior to standing and and sitting down. GIOVANNI with FWW when up on her feet for balance and cues to use her arms on the FWW to help offweight her RLE. OT- Balance Assessment Sitting Balance and Reactions Static Sitting Balance Ability Normal Dynamic Sitting Balance Ability Good Standing Balance and Reactions Static Standing Balance Ability Fair Dynamic Standing Balance Ability Fair M8 OT- IP Objective Assessments Start: 01/17/23 10:34 Freq: Status: Active Protocol: Document 01/17/23 09:13 [facility] (Rec: 01/17/23 10:48 [facility] [id number]) OT Gross Range of Motion Upper Extremity Range of Motion Assessment Within Functional Limits OT Strength Upper Extremity Strength Assessment Within Functional Limits OT-Muscle Tone Assessment Muscle Tone WNL Yes M9 OT- IP Assessment and Plan Start: 01/17/23 10:34 Freq: Status: Active Protocol: Document 01/17/23 09:13 [facility] (Rec: 01/17/23 10:48 [facility] [id number]) OT Summary Assessment and Plan Potential Rehabilitation Potential Good Analytic Complexity at Evaluation Moderate Summary OT Impairments Pain,Balance,Functional Mobility,Dressing,Toileting, Bathing,Toilet Transfers, Shower Transfers,Activity Tolerance Progress Towards Goals Progressing Toward Goals Assessment Summary Pt MOd complexity and main barriers are steps, needing reminders to incorporate her hip precautions, and now needing extensive assist for ADL needs. Pt going to skilled rehab prior to going home. Goals Dressing Goal Minimal Assistance Toileting Goal Standby Assistance Bathing Goal Minimal Assistance Toilet Transfer Goal Standby Assistance Shower Transfer Goal Standby Assistance Days to Meet Goals 10 Frequency of Treatment Frequency Of Treatment Once a Day Treatment Plan OT Treatment Plan ADL Training,Functional Mobility,Patient/Family Education,Discharge Planning Discharge Recommendations OT Discharge Recommendations SNF Rehab Transportation Needs at Discharge Wheelchair/Cabulance
--- NOTE | 2023-01-17 13:17 | PC.NURSE ---
Transfer: Report called to Shane admitting nurse at [facility]. Reviewed hospital course. Pt had a fall, she has some memory loss, impulsive and will try to get up on her own. She had no BM, ate some prunes this am and has had 2 bm's since. Pettit was d/c and did have a small void. She has a large prolapsed uterus but reports she has no problems voiding. She reports she has had the prolapse since the 1969's, her spouse is here and he confirms that and no problem voiding. Pt's aquacel was coming off and it was replaced. (she had picked at it) The dressing to the right elbow was changed, scant drainage, mostly clear. New dressing applied. Discussed pt's adl's and the wounds she has. How she transfers. Use of the abductor pillow when in bed or anytime if needed. She has not needed it when she is in the chair. But it is on if she falls asleep or is in bed. Pt and spouse feel they are ready for d/c. Tylenol and ibuprofen have been effective for pain. Pt transfered to their facility via their van.
== END 2023-01-17 13:10 | DRG 521 ==
LOC: ED 14:30 → AC 15:14
PROVIDERS: Orthopaedic Surgery Foot and Ankle Surgery; Admitting Provider Internal Medicine; Emergency Provider Emergency Medicine; Family Provider Family Medicine; PCP Family Medicine; Referring Provider Emergency Medicine; Visit Provider Internal Medicine
PROC: 0SRR0JZ Replacement of Right Hip Joint, Femoral Surface with Synthetic Substitute, Open Approach (ICD-10-PCS; CPT 27125; principal; 2023-01-15 09:00)
DX: M80.051A Age-related osteoporosis with current pathological fracture, right femur, initial encounter for fracture (principal); G92.8 Other toxic encephalopathy; F05 Delirium due to known physiological condition; F17.210 Nicotine dependence, cigarettes, uncomplicated; I10 Essential (primary) hypertension; T40.605A Adverse effect of unspecified narcotics, initial encounter; E11.9 Type 2 diabetes mellitus without complications
CPT/HCPCS: 36415; 71045; 71260; 72170; 73502; 73562; 80048; 80053; 82550; 82962; 83036; 83690; 83735; 83880; 84443; 84484; 85025; 85610; 85730; 93005; 96374; 96375; 96376; 97162; 97166; 97530; 99284; 99285; C1776; J0171; J0690; J1170; J1650; J1815; J2405; J2704; Q9967

== ENCOUNTER → 2023-05-04 14:17 | Outpatient (CLI) | payer MEDICARE, OTHER, SELFPAY ==
[2023-01-14 16:49] VITALS: BMI 25.4
[2023-05-04 17:12] LABS: Hemoglobin A1C% w Est Avg Glu 7.3 % (4.0-6.0)
[2023-05-04 17:29] LABS: Alanine Aminotransferase 18 IU/L (<35); Albumin 4.6 g/dL (3.5-5.0); Albumin Globulin Ratio 1.3 (1.0-2.8); Alkaline Phosphatase 69 U/L (38-126); Aspartate Aminotransferase 21 IU/L (14-36); BUN Creatinine Ratio 23.9 (6-22); Bilirubin Total 0.6 mg/dL (0.2-1.3); Blood Urea Nitrogen 17 mg/dL (7-17); Calcium 10.1 mg/dL (8.4-10.2); Carbon Dioxide 26 mmol/L (22-32); Chloride 104 mmol/L (98-107); Cholesterol 291 mg/dL (140-199); Estimated Glomerular Filt Rate > 60 mL/min (>60); Globulin 3.5 g/dL (1.7-4.1); Glucose 151 mg/dL (80-110); HDL Cholesterol 47 mg/dL (40-60); HEMOLYSIS < 15 (0-50); LDL Cholesterol Calculated 206 mg/dL (<100); Potassium 3.9 mmol/L (3.4-5.1); Sodium 140 mmol/L (137-145); Total Protein 8.1 g/dL (6.3-8.2); Triglycerides 191 mg/dL (35-150)
== END ==
PROVIDERS: Family Provider Family Medicine; PCP Nurse Practitioner; Referring Provider Nurse Practitioner; Visit Provider Nurse Practitioner
DX: E11.9 Type 2 diabetes mellitus without complications (principal); E11.69 Type 2 diabetes mellitus with other specified complication; E78.5 Hyperlipidemia, unspecified; I10 Essential (primary) hypertension
CPT/HCPCS: 36415; 80053; 80061; 83036

== ENCOUNTER → 2023-07-27 17:09 | Outpatient (CLI) | payer MEDICARE, OTHER, SELFPAY ==
[2023-01-14 16:49] VITALS: BMI 25.4
[2023-07-27 18:55] LABS: Creatinine Urine Random 61.7 mg/dL
[2023-07-27 18:59] LABS: Microalbumi Creatinin Ratio Ur 37.2 ug/mg CR (<30); Microalbumin Urine Random 2.3 mg/dL (0-1.6)
== END ==
PROVIDERS: PCP Nurse Practitioner; Referring Provider Nurse Practitioner; Visit Provider Nurse Practitioner
DX: I10 Essential (primary) hypertension (principal); E11.69 Type 2 diabetes mellitus with other specified complication; E78.5 Hyperlipidemia, unspecified; E11.9 Type 2 diabetes mellitus without complications
CPT/HCPCS: 82043; 82570

== ENCOUNTER → 2023-08-08 12:55 | Outpatient (CLI) | payer OTHER, MEDICARE, SELFPAY ==
[2023-01-14 16:49] VITALS: BMI 25.4
[2023-08-08 13:30] LABS: Hemoglobin A1C% w Est Avg Glu 6.6 % (4.0-6.0)
[2023-08-08 13:41] LABS: BUN Creatinine Ratio 19.4 (6-22); Blood Urea Nitrogen 14 mg/dL (7-17); Calcium 10.3 mg/dL (8.4-10.2); Carbon Dioxide 25 mmol/L (22-32); Chloride 108 mmol/L (98-107); Estimated Glomerular Filt Rate > 60 mL/min (>60); Glucose 146 mg/dL (80-110); HEMOLYSIS < 15 (0-50); Sodium 141 mmol/L (137-145)
== END ==
PROVIDERS: PCP Nurse Practitioner; Referring Provider Nurse Practitioner; Visit Provider Nurse Practitioner
DX: I10 Essential (primary) hypertension (principal); E11.69 Type 2 diabetes mellitus with other specified complication; E78.5 Hyperlipidemia, unspecified; E11.9 Type 2 diabetes mellitus without complications
CPT/HCPCS: 80048; 83036

== ENCOUNTER → 2023-08-09 16:13 | Outpatient (CLI) | payer OTHER, MEDICARE, SELFPAY ==
[2023-01-14 16:49] VITALS: BMI 25.4
[2023-08-09 17:16] LABS: Appearance Urine UA CLEAR; Bilirubin Urine UA NEGATIVE (NEGATIVE); Color Urine UA YELLOW; Glucose Urine UA NEGATIVE (Negative); Ketones Urine UA 1+ (NEGATIVE); Leukocyte Esterase Urine UA NEGATIVE (NEGATIVE); Nitrite Urine UA NEGATIVE (Negative); Occult Blood Urine UA NEGATIVE (Negative); Protein Urine UA TRACE (Negative); Specific Gravity Urine UA 1.025 (1.000-1.035)
[2023-08-09 17:22] LABS: RBC Urine None Seen (0-5/HPF); Urine Volume 10mL (spun); WBC Urine 0-1/HPF (0-5/HPF); pH Urine UA 5.5 (4.5-8.0)
[2023-08-09 17:23] LABS: Bacteria Urine None Seen; Calcium Oxalate Crystals Urine Few; Culture Indicated Urine Cult Not Indicated; Squamous Epithelial Cell Urine None Seen (0-5/HPF)
== END ==
PROVIDERS: PCP Nurse Practitioner; Referring Provider Nurse Practitioner; Visit Provider Nurse Practitioner
DX: R30.0 Dysuria (principal)
CPT/HCPCS: 81001

== ENCOUNTER 2023-09-08 07:21 | Day surgery (SDC) | payer MEDICARE, OTHER, SELFPAY ==
[2023-01-14 16:49] VITALS: BMI 25.4
[2023-08-31 14:30] VITALS: BMI 23.6
[2023-09-08] VITALS (7 sets, daily range): BP systolic 123–178; BP diastolic 60–78; PULSE 54–89; RESP 14–18; TEMP 36.2–36.9; O2SAT 95–99; BMI 23.1
[2023-09-08] MEDS: ACETAMINOPHEN 325 MG TABLET 975 MG PO (07:52)
[2023-09-08] MEDS: LACTATED RINGERS 1,000 ML 42 ML IV ×2 (08:00→10:19)
--- NOTE | 2023-09-08 09:08 | PM.PREOP ---
Pre-operative Note COVID-19 COVID-19 status: Not tested Interval Note History & Physical reviewed/Exam performed by Physician: Yes Changes to H&P: No
[2023-09-08] MEDS: CLINDAMYCIN 900 MG/50 ML PIGGYBACK 50 MG IV (09:35)
--- NOTE | 2023-09-08 09:39 | SUR.OPER ---
Lithotomy on padded OR bed, head on pillow, arms secured on padded arm boards at <90 degrees abduction. Legs secured in padded yellow fins stirrups.
[2023-09-08] MEDS: BUPIVACAINE 0.25% (PF) 30 ML, EPINEPHrine 0.15 MG INJ (09:42)
--- NOTE | 2023-09-08 11:40 | PM.GYNOP.1 ---
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 The patient has noted a bulge that seems to be increasing in size but is uncertain about the number of years this has been going on. Patient has difficulty with memory and is as a result a very poor historian. She states that she has had 2 vaginal with her largest being 9 lb 2 oz. she does not recall if there was any obstetrical lacerations or forcep use. She also states that she had a hysterectomy in the past but does not recall what year she had it done or for what indication. She believes that she has [address] Patient has symptoms of pelvic pressure and discomfort particularly at the end of the day. She also feels like she is sitting on a balloon at times. She denies difficulty voiding but does have some urge incontinence at times. She denies UTIs. We had an extended discussion regarding the nature of pelvic organ prolapse and the specific type of pelvic organ prolapse that she has following prior hysterectomy. All options for management/treatment were discussed including but not limited to pessary use, colpocleisis, vaginal apex reconstruction/suspension as well as anterior colporrhaphy. After consideration of all options the patient has decided to proceed with colpocliesis and she presents today for her scheduled surgery. 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 Keratinization the apical vaginal skin noted but no other mucosal lesions are seen Closure Type: primary Specimen(s): none Estimated blood loss (mL): 25 Blood products transfused: none Procedure in detail: With the patient under satisfactory general endotracheal anesthesia in the modified dorsal lithotomy position, the vagina, perineum, and lower abdominal wall were prepped and draped in the usual manner for colpocleisis. A pre-surgical safety time-out was then taken in accordance with [facility] [place] protocols. A short weighted speculum was placed in the vagina and the vaginal cuff identified visually. The vaginal cuff was grasped with 2 T clamps and mobilized downward. The area of mucosal incision anteriorly starting 2 cm distal to the vaginal cuff scar, 3 cm in width, and extending distal to 4 cm from the hymeneal ring was made with marking pen. Posteriorly a similar rectangle was marked from 2 cm distal to the vaginal cuff posteriorly, 3 cm in width and extending to within 4 cm of the posterior hymenal ring. Vaginal mucosa both anterior and posterior which was to be excised was infiltrated with 0.25% Marcaine with epinephrine. The mucosa both anterior and posterior was excised with sharp and blunt dissection. The most cephalic edges of the mucosa were then brought together with 2-0 Vicryl interrupted. The denuded anterior and posterior tissues were then brought together with 2-0 Vicryl using [id number] stitches at consecutive levels followed by approximation of the lateral mucosa with 2-0 Vicryl interrupted. Five layers of ukjjcm-li-mylky stitches and lateral interrupted were used to bring the denuded areas of anterior and posterior tissues together in the midline. The distal most vaginal mucosa was then brought together with 2-0 Vicryl interrupted, thus completing the performance of the colpocleisis. A elham-shaped incision of the skin overlying the perineal body up into the distal most vagina was made with monopolar cutting and the mucosa excised in the usual manner. Sharp and blunt dissection was used to expose the distal levators on both sides and 0 Vicryl interrupted were used to approximate the distal levators. Additional 2-0 Vicryl stitches were used to bring the introitus together in midline and substance of the perineal body was also plicated in the midline with 2-0 Vicryl interrupted. The vaginal mucosa was then brought together with 2-0 Vicryl and a running interlocking stitch all the way down to the perineal body. Case was then completed and the patient awakened from general anesthesia. She was then transferred to the PACU for a period of observation and recovery having tolerated procedure well. Complications: none Complications: none Post-operative Condition: stable Disposition: PACU Plan for aftercare: Routine postoperative care with follow-up planned for 2 weeks postop.
== END 2023-09-08 12:40 | disposition home or self-care (01) ==
PROVIDERS: PCP Nurse Practitioner; Referring Provider Obstetrics & Gynecology; Visit Provider Obstetrics & Gynecology
PROC: (CPT 57120; principal; 2023-09-08 09:00)
DX: N99.3 Prolapse of vaginal vault after hysterectomy (principal)
CPT/HCPCS: 57120; J0171; J1100; J2405; J2704; J3010

== ENCOUNTER → 2023-10-12 15:09 | Outpatient (CLI) | payer MEDICARE, OTHER, SELFPAY ==
[2023-01-14 16:49] VITALS: BMI 25.4
[2023-10-12 15:49] LABS: Add Manual Diff / Slide Review NO; Basophils Absolute Auto 0 /uL (0-100); Basophils Percent Auto 0.5 % (0-2); Eosinophils Absolute Auto 100 /uL (0-450); Eosinophils Percent Auto 1.2 % (2-4); Hematocrit 39.7 % (36-46); Hemoglobin 13.2 g/dL (12.0-16.0); Lymphocytes Absolute Auto 1400 /uL (1100-4500); Lymphocytes Percent Auto 16.8 % (25-40); Mean Corpuscular HGB Conc 33.3 % (30-36); Mean Corpuscular Hemoglobin 29.5 PG (26-34); Mean Corpuscular Volume 88.5 fL (80-100); Monocytes Absolute Auto 500 /uL (0-900); Monocytes Percent Auto 5.7 % (3-14); Neutrophils Absolute Auto 6100 /uL (1500-7000); Neutrophils Percent Auto 75.8 % (50-75); Platelet Count 247 X10^3/uL (150-400); Red Blood Cell Count 4.49 X10^6/uL (4.0-5.2); Red Cell Distribution Width 12.9 % (11.6-14.8)
--- NOTE | 2023-10-12 16:00 | DI.US.S_ITS ---
PROCEDURE: US THYROID INDICATIONS: abnormal US and bx of thyroid lesion TECHNIQUE: Real-time scanning was performed of the thyroid gland, with image documentation. COMPARISON: CT, CT CHEST W CON, 01/14/2023, 20:04. FINDINGS: Thyroid: Right lobe measures 4.6 x 1.6 x 1.0 cm. Left lobe measures 3.5 x 0.9 x 0.7 cm. Isthmus is 0.5 cm thick. Echotexture is homogeneous. Nodule number: 1 Location: Right mid Size: 1.3 x 0.9 x 0.7 cm. Composition: Solid Echogenicity: Hypoechoic Shape: wider than tall. Margins: Smooth Echogenic foci: None Total points: 4 ACR TI-RADS category: 4 Nodule number: 2 Location: Right superior Size: 1.0 x 0.7 x 0.8 cm. Composition: Solid Echogenicity: Hypoechoic Shape: wider than tall. Margins: Smooth Echogenic foci: None Total points: 4 ACR TI-RADS category: 4 Miscellaneous: Incidental finding of 1.9 x 1.4 x 1.4 cm focus of decreased echogenicity with increased vascularity within the right ICA/ECA bifurcation. IMPRESSION: Lesions 1 into are considered category 4. According to recommendations below, recommend interval annual follow-up at 1, 2, 3 and 5 years. Incidental finding of 1.9 x 1.4 x 1.4 cm focus of decreased echogenicity with increased vascularity within the right ICA/ECA bifurcation. Carotid body tumor cannot be excluded. CT neck with contrast is recommended. ACR TI-RADS definitions and recommendations: TI-RADS 1 (benign): 0 points. FNA not needed. TI-RADS 2 (not suspicious): 2 points. FNA not needed. TI-RADS 3 (mildly suspicious): 3 points. * FNA if 2.5 cm or larger, follow up if 1.5 cm or larger (at 1, 3, and 5 years). TI-RADS 4 (moderately suspicious): 4-6 points. * FNA if 1.5 cm or larger, follow up if 1 cm or larger (at 1, 2, 3, and 5 years). TI-RADS 5 (highly suspicious): 7 points or more. * FNA if 1 cm or larger, follow up if 0.5 cm or larger (every year for 5 years). Dictated by: Sayda Camacho M.D. on 10/13/2023 at 11:35 Approved by: Sayda Camacho M.D. on 10/13/2023 at 11:36
[2023-10-12 16:35] LABS: HEMOLYSIS < 15 (0-50); Iron 103 ug/dL (37-170)
[2023-10-12 16:44] LABS: Hemoglobin A1C% w Est Avg Glu 6.7 % (4.0-6.0)
[2023-10-12 16:44] LABS: Microalbumin Urine Random 4.8 mg/dL (0-1.6)
[2023-10-12 16:45] LABS: Alanine Aminotransferase 15 IU/L (<35); Albumin 4.9 g/dL (3.5-5.0); Albumin Globulin Ratio 1.7 (1.0-2.8); Alkaline Phosphatase 68 U/L (38-126); Aspartate Aminotransferase 24 IU/L (14-36); BUN Creatinine Ratio 26.6 (6-22); Bilirubin Total 0.7 mg/dL (0.2-1.3); Blood Urea Nitrogen 21 mg/dL (7-17); Calcium 9.5 mg/dL (8.4-10.2); Carbon Dioxide 27 mmol/L (22-32); Chloride 105 mmol/L (98-107); Cholesterol 252 mg/dL (140-199); Estimated Glomerular Filt Rate > 60 mL/min (>60); Globulin 2.9 g/dL (1.7-4.1); Glucose 125 mg/dL (80-110); HDL Cholesterol 65 mg/dL (40-60); HEMOLYSIS < 15 (0-50); LDL Cholesterol Calculated 160 mg/dL (<100); Potassium 4.7 mmol/L (3.4-5.1); Sodium 140 mmol/L (137-145); Total Protein 7.8 g/dL (6.3-8.2); Triglycerides 136 mg/dL (35-150)
[2023-10-12 16:47] LABS: Percent Iron Saturation 30 % (15-50); Total Iron Binding Capacity 339 ug/dL (265-497); Transferrin 263 mg/dL (206-381)
[2023-10-12 16:52] LABS: Free T3, Triiodothyronine Free 2.83 pg/mL (2.77-5.27)
[2023-10-12 17:06] LABS: Thyroid Stimulating Hormone 1.87 uIU/mL (0.47-4.68)
[2023-10-12 17:35] LABS: Vitamin B12 671 pg/mL (239-931)
== END ==
PROVIDERS: PCP Nurse Practitioner; Referring Provider Nurse Practitioner; Visit Provider Nurse Practitioner
DX: E04.2 Nontoxic multinodular goiter (principal); R53.83 Other fatigue; F17.210 Nicotine dependence, cigarettes, uncomplicated; E11.69 Type 2 diabetes mellitus with other specified complication; E78.5 Hyperlipidemia, unspecified; D64.9 Anemia, unspecified; I10 Essential (primary) hypertension; S72.001A Fracture of unspecified part of neck of right femur, initial encounter for closed fracture
CPT/HCPCS: 36415; 76536; 80053; 80061; 82043; 82570; 82607; 83036; 83540; 83550; 84439; 84443; 84481; 85025

== ENCOUNTER → 2023-10-16 14:14 | Outpatient (CLI) | payer MEDICARE, OTHER, SELFPAY ==
[2023-01-14 16:49] VITALS: BMI 25.4
--- NOTE | 2023-10-16 14:16 | DI.CT.S_ITS ---
PROCEDURE: CT LUNG LOW DOSE SCREENING INDICATIONS: tobacco dependent TECHNIQUE: Noncontrast 2.0-2.5 mm thick sections acquired from the pulmonary apices to the posterior costophrenic angles. 7 mm thick axial MIP, and 5 mm coronal and sagittal reformats were then acquired. For radiation dose reduction, the following was used: automated exposure control, adjustment of mA and/or kV according to patient size. COMPARISON: [facility], CT, CT CHEST W CON, 01/14/2023, 20:04. FINDINGS: Image quality: Diagnostic. Lower Neck: No enlarged lymph nodes. Thyroid: No thyroid nodules which require sonographic follow up, per consensus guidelines. Axillae: No enlarged lymph nodes. Chest Wall: Unremarkable. Bones: No acute fractures. No aggressive appearing lytic or blastic osseous lesions. [id number] multilevel degenerative changes of the spine. Lungs and Pleura: No pneumothorax or pleural effusions. Compared to CT chest dated January 14, 2023, no new or enlarging solid pulmonary nodules or consolidation. Stable left lower lobe 1.2 cm calcified granuloma. Patent central airways. Heart: Heart size is normal. No pericardial effusion. Calcification of the aortic valve. Mild to moderate three-vessel coronary calcification. Thoracic Vessels: The aorta and pulmonary arteries demonstrate normal size. Mild calcification of the thoracic aorta. Mediastinum and Indigo: No enlarged lymph nodes. A few nonenlarged mediastinal and hilar calcified lymph nodes compatible with prior granulomatous infection. Esophagus: No wall thickening. No hiatal hernia. Upper Abdomen: Visualized upper abdomen solid organs and bowel loops appear normal. Mild calcification of the abdominal aorta. IMPRESSION: 1. Compared to CT chest dated January 14, 2023, no new or enlarging solid pulmonary nodules or consolidation. Stable left lower lobe 1.2 cm calcified granuloma. LUNG-RADS 1; continued annual screening, if eligible. 2. Mild to moderate three-vessel coronary calcifications. 3. Sequela of prior granulomatous infection including a calcified granuloma in the lung and calcified mediastinal and hilar lymph nodes. Dictated by: Tiara Murray M.D. on 10/16/2023 at 16:22 Approved by: Tiara Murray M.D. on 10/16/2023 at 16:28
--- NOTE | 2023-10-16 14:36 | DI.CT.S_ITS ---
PROCEDURE: CT SOFT TISSUE NECK W CON INDICATIONS: suspcious growth seen on US TECHNIQUE: After the administration of intravenous contrast, 3.0 mm axial sections acquired from the sella to the aortic arch. Additional oblique axial 3.0 mm sections acquired through the pharynx. 3 mm thick coronal and sagittal reformats were generated. For radiation dose reduction, the following was used: automated exposure control. COMPARISON: [facility], US, US THYROID, 10/12/2023, 15:55. FINDINGS: Image quality: Excellent. Lymph nodes: No enlarged lymph nodes seen throughout the neck. Vessels: Visualized vasculature appears patent. Atherosclerotic vascular calcifications, most pronounced at the carotid bulbs with less than 50% stenosis of the bilateral proximal ICAs. Neck spaces: Enhancing lesion just superior to the right carotid bifurcation between the ECA and ICA measuring 1.4 x 1.4 x 1.5 cm. The oropharynx, nasopharynx, and pharynx demonstrate no mucosal lesions. The vocal cords, false vocal cords, pyriform sinuses, epiglottis, vallecula, and tongue base all appear normal. Extramucosal spaces appear unremarkable. Glands: The parotid and submandibular glands appear normal. Thyroid gland contains nodules, better evaluated on prior ultrasound. Miscellaneous: Visualized brain and orbits appear normal. Lung apices appear clear. Superficial soft tissues appear normal. Bones: No suspicious bony lesions. Multilevel degenerative changes of the lumbar spine. Visualized sinuses and mastoids appear unremarkable. IMPRESSION: Enhancing lesion just superior to the right carotid bifurcation between the ECA and ICA measuring up to 1.5 cm. 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 Thyroid nodules, better evaluated on prior thyroid ultrasound. Dictated by: Henok Perez M.D. on 10/16/2023 at 16:14 Approved by: Henok Perez M.D. on 10/16/2023 at 16:19
== END ==
PROVIDERS: PCP Nurse Practitioner; Referring Provider Nurse Practitioner; Visit Provider Nurse Practitioner
DX: I25.10 Atherosclerotic heart disease of native coronary artery without angina pectoris (principal); J98.4 Other disorders of lung; F17.210 Nicotine dependence, cigarettes, uncomplicated; Z12.2 Encounter for screening for malignant neoplasm of respiratory organs; R22.1 Localized swelling, mass and lump, neck; I70.0 Atherosclerosis of aorta; R53.83 Other fatigue; R93.89 Abnormal findings on diagnostic imaging of other specified body structures; R68.89 Other general symptoms and signs
CPT/HCPCS: 70491; 71271; Q9967

== ENCOUNTER 2023-12-19 09:32 | Emergency (ER) | payer MEDICARE, OTHER, SELFPAY ==
[2023-01-14 16:49] VITALS: BMI 25.4
[2023-12-19] VITALS (19 sets, daily range): BP systolic 121–204; BP diastolic 65–88; PULSE 55–80; RESP 18–23; TEMP 36.7; O2SAT 95–100; BMI 22.3
--- NOTE | 2023-12-19 10:05 | ED_ITS ---
HPI - Head Injury General Chief complaint: Head Injury Stated complaint: fell, has wound on back of head Time Seen by Provider: 12/19/23 10:05 Source: patient, family (spouse), RN notes reviewed and old records reviewed Mode of arrival: Family Vehicle Limitations: no limitations History of Present Illness HPI Narrative: 78-year-old female history of dementia, hypertension, no anticoagulation. Patient had a fall last night patient indicates that she tripped and fell. Was unwitnessed by her . Patient has a lack on her posterior scalp. She states little bit of pain where her had touches the bed, denies headache denies neck pain, denies any back pain, no chest pain or shortness breath. No nausea or vomiting. No numbness tingling or weakness. No issues with movement or gait. Patient isn't on any anticoagulation does take medication for hypertension and dementia. Has allergy to sulfa as well as other reported antibiotic allergies. For use tobacco, occasional alcohol, no recreational drugs. She presents with her . Primary care is Serena flor. Related Data Home Medications Medication Instructions Recorded Confirmed olmesartan 5 mg tablet 10 mg PO DAILY blood pressure 12/19/23 12/19/23 telmisartan 80 mg tablet 80 mg PO DAILY High Blood Pressure 12/19/23 12/19/23 Previous Rx's Medication Instructions Recorded acetaminophen 500 mg tablet See Rx Instructions .Route 10/02/23 (Tylenol Extra Strength) .COMPLEX #360 tabs donepezil 5 mg tablet (Aricept) 5 mg PO BEDTIME #90 tabs 11/02/23 memantine 5 mg tablet 5 mg PO QPM #90 tabs 11/02/23 Allergies Allergy/AdvReac Type Severity Reaction Status Date / Time aspirin [ASPIRIN] Allergy Mild retinal Verified 10/20/23 14:30 hemorrhage cefazolin [CEFAZOLIN] Allergy Mild headache Verified 10/20/23 14:30 cephalexin [CEPHALEXIN] Allergy Mild headache Verified 10/20/23 14:30 lisinopril [LISINOPRIL] Allergy Mild abdominal Verified 10/20/23 14:30 pain metformin [METFORMIN] Allergy Mild Verified 10/20/23 14:30 ramipril [RAMIPRIL] Allergy Mild gi Verified 10/20/23 14:30 issue/abdominal pain Sulfa (Sulfonamide Allergy Mild Verified 10/20/23 14:30 Antibiotics) sodium sulfite AdvReac Intermediate Rash Verified 10/20/23 14:30 Review of Systems Review of Systems ROS Unobtainable: All systems reviewed & are unremarkable except as noted in HPI and below Patient History Medical History Alzheimer disease Coronary artery disease Mass in neck Memory impairment Tobacco dependence Retinal detachment (~2002) Osteoporosis History of fracture of right hip Hyperlipidemia associated with type 2 diabetes mellitus Diabetes type 2, controlled (~2000) Pre-diabetes HTN (hypertension) Surgical History History of right hip hemiarthroplasty (01/14/23) Anesthesia H/O hand surgery (~1964) Status post hernia repair Status post hysterectomy (~1974) Family History Brother Diabetes mellitus Hypertension High cholesterol Kidney failure Father Diabetes mellitus Heart disease Hypertension Hyperlipidemia Stroke Grandmother Stroke Grandmother Stroke Dementia Mother Rheumatic fever Social History household members: spouse Smoking Status: Current every day smoker alcohol intake: current Smoking Status: Current every day smoker tobacco type: cigarettes alcohol intake frequency: holidays/special occasions only Substance Use Type: does not use and sedatives Exam Narrative Exam Narrative: GEN: Patient appears in mild distress. HEAD: Patient has a vertical scalp laceration posterior scalp proximally 1.5 cm, no raccoon/Degroot sign. NECK: Nontender, painless range of motion, trachea midline Negative Nexus criteria, midline line tenderness, distracting injury, altered mental status-patient is at baseline for her dementia per has been but does have memory issues, neuro deficit, recent EtOH. EYES: PERRLA, EOMI ENT: External inspection normal, trachea is midline, TM's are normal no hemotypanum, Nares are clear, no septal hematoma, no dental or oral injury, airway is normal and with normal occlusion, No bony tenderness RESP: Chest is nontender and has symmetric movement, no ecchymosis, breath sounds are normal no crackles, wheezes or rales CVS: Heart sounds are normal, no murmur noted, No JVD. ABG/GI: Nontender, soft, normal bowel sounds, no distention, no organomegaly, pelvic rock is negative NEURO: Oriented AOx3, neuro is grossly intact, sensation and motor is normal all 4 extremities moving, cranial nerves II through XII are intact, GCS is 15 PSYCH: Normal mood and affect SKIN: Intact, warm and dry, no crepitus and without decubitus BACK: No CVA tenderness, no vertebral tenderness, no step-off's, no crepitus EXT: Atraumatic, hips are nontender, no pedal edema, normal color and temperature, normal range of motion of extremities with normal tendon exam, 2+ pulses in all four extremities Initial Vital Signs Initial Vital Signs: Vital Signs Pulse Rate 71 12/19/23 09:36 Blood Pressure 204/87 H 12/19/23 09:36 Pulse Oximetry 97 12/19/23 09:36 Procedures Laceration Repair Laceration 1: Site: scalp Size (cm): 2 Description: linear and irregular Depth: simple, single layer Local Anesthetic: other anesthetic (Topical lidocaine/prilocaine) Pre-repair: wound explored, irrigated extensively and deep structures intact Skin layer closed with: jennifer (#4) Course Orders Ordered: ED Orders 12/19/23 10:17 CT head/brain wo con Stat 12/19/23 10:25 CT cervical spine wo con Stat 12/19/23 14:15 CT head/brain wo con Stat Discontinued Medications Diphtheria/Tetanus/Acell Pertussis (Tet,Diph,Pertuss(Acell),Vac/Pf 0.5 Ml Syringe) 0.5 ml IM .ONCE ONE Stop: 12/19/23 10:18 Last Admin: 12/19/23 10:47 Dose: 0.5 ml Documented By: JORGE Lidocaine/Prilocaine (Lidocaine/Prilocaine 5 Gm) 5 gm TOP NOW ONE Stop: 12/19/23 10:18 Last Admin: 12/19/23 10:59 Dose: 5 gm Documented By: JORGE Vital Signs Vital signs: Vital Signs - 8 hr 12/19/23 11:00 12/19/23 11:27 12/19/23 11:28 Pulse Rate 55 L 55 L Respiratory Rate Blood Pressure 160/67 H Pulse Oximetry 96 97 12/19/23 11:28 12/19/23 11:30 12/19/23 11:30 Pulse Rate 57 L 57 L Respiratory Rate Blood Pressure 167/71 H Pulse Oximetry 96 97 12/19/23 12:00 12/19/23 12:01 12/19/23 12:01 Pulse Rate 56 L 57 L Respiratory Rate Blood Pressure 146/65 H Pulse Oximetry 96 95 12/19/23 12:17 12/19/23 12:17 12/19/23 12:30 Pulse Rate 60 Respiratory Rate Blood Pressure 121/80 155/71 H Pulse Oximetry 96 12/19/23 12:30 12/19/23 13:30 12/19/23 13:31 Pulse Rate 55 L 64 66 Respiratory Rate Blood Pressure Pulse Oximetry 97 97 97 12/19/23 13:31 12/19/23 13:46 12/19/23 13:46 Pulse Rate 59 L Respiratory Rate 21 Blood Pressure 202/85 H 179/77 H Pulse Oximetry 96 12/19/23 14:00 12/19/23 14:00 12/19/23 14:30 Pulse Rate 61 59 L Respiratory Rate 19 22 Blood Pressure 182/78 H Pulse Oximetry 97 98 12/19/23 15:00 Pulse Rate 58 L Respiratory Rate 23 Blood Pressure 182/78 H Pulse Oximetry 97 MDM - Head Injury Imaging Data CT scan - head: Radiologist's Impression: ite (More??) Close Cervical Spine CT (Signed) Satish Borja - 12/19/[address] (Signed) Satish Borja - 12/19/[address] (Signed) Henok Perez - 10/16/23 CT Lung (Signed) Tiara Murray - 10/16/23 Thyroid Ultrasound (Signed) Sayda Camacho - 10/12/23 Pelvis X-Ray (Signed) Satish Borja - 01/15/23 Pelvis X-Ray (Signed) Satish Borja - 01/15/[address] (Signed) Dangelo Gold - 01/14/23 Chest X-Ray (Signed) Satish Borja - 01/14/23 Knee X-Ray (Signed) Vero Romero - 01/14/23 Hip X-Ray (Signed) Vero Romero - 01/14/[address] [address] [address] Scan Report Signed Patient: Rajwinder Persaud MR#: [id number] : 1945 Acct:[id number] Age/Sex: 78 / F Date of Service: 12/19/23 Loc: ED Accession Number: [id number] Procedure: CT head/brain wo con Ordering Provider: Sarah Naranjo D.O. PROCEDURE: CT HEAD/BRAIN WO CON INDICATIONS: fall, head lac, dementia TECHNIQUE: Noncontrast 4.5 mm thick angled axial sections acquired from the foramen magnum to the vertex, with coronal and sagittal reformats. For radiation dose reduction, the following was used: automated exposure control, adjustment of mA and/or kV according to patient size. COMPARISON: [facility], CT, CT CERVICAL SPINE WO CON, 12/19/2023, 10:25. FINDINGS: Image quality: Diagnostic. CSF spaces: Basal cisterns are patent. No extra-axial fluid collections. The ventricles are symmetric in size and shape. Brain: There is mild subdural hemorrhage seen, manifested as asymmetric thickening of the left tentorium, measuring up to 2 mm in thickness. No intracranial masses. There is cerebral volume loss for age, with resultant ventricular and sulcal prominence. There are periventricular and deep white matter chronic small vessel ischemic changes. There is intracranial internal carotid artery atherosclerosis. Skull and face: There is a scalp laceration seen posteriorly, to the left of the midline. No associated calvarial fracture can be seen. Calvarium and visualized facial bones appear intact, without suspicious lesions. Sinuses: Visualized sinuses and mastoids are clear. IMPRESSION: There is a mild degree of subdural hemorrhage seen, with asymmetric thickening of the left tentorium. Scalp laceration seen posteriorly, to the left of the midline. No displaced calvarial fracture can be seen. Note: Critical findings discussed by telephone with Dr. Naranjo at 10:41 a.m. [place] time on December 19, 2023. Dictated by: Satish Borja M.D. on 12/19/2023 at 9:38 Approved by: Satish Borja M.D. on 12/19/2023 at 9:42 CT - cervical spine: Radiologist's Impression: [address] [address] [address] Scan Report Signed Patient: Rajwinder Persaud MR#: [id number] : 1945 Acct:[id number] Age/Sex: 78 / F Date of Service: 12/19/23 Loc: ED Accession Number: [id number] Procedure: CT cervical spine wo con Ordering Provider: Sarah Naranjo D.O. PROCEDURE: CT CERVICAL SPINE WO CON INDICATIONS: fall, head lac, dementia TECHNIQUE: Noncontrast 3 mm thick sections acquired from the skull base to the T4 level. Sagittal and coronal reformats were then constructed. Oblique axial images were also reformatted through the disc levels. For radiation dose reduction, the following was used: automated exposure control, adjustment of mA and/or kV according to patient size. COMPARISON: [facility], CT, CT SOFT TISSUE NECK W CON, 10/16/2023, 14:40. [facility], CT, CT HEAD/BRAIN WO CON, 12/19/2023, 10:25. FINDINGS: Image quality: Excellent. Bones: No fractures or dislocations. Visualized superior ribs are intact. Focal degenerative change is seen involving the C1-C2 interface anteriorly. There is at least moderate disc space narrowing seen at C2-C3 and C4-C5, with moderate to severe disc space narrowing seen at C4-C5 and C5-C6. Moderate disc space narrowing is seen at C6-C7. There is minimal retrolisthesis seen at C3-C4, with minimal anterolisthesis at C4-C5 and C5-C6. 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 Soft tissues: Prevertebral soft tissues are normal in thickness. No paravertebral hematomas. No apical pneumothoraces. Atherosclerotic calcification is noted. IMPRESSION: No displaced fracture or traumatic subluxation. Multiple levels of significant cervical spine degenerative change can be seen. 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 Dictated by: Satish Borja M.D. on 12/19/2023 at 9:35 Approved by: Satish Borja M.D. on 12/19/2023 at 9:[address]: Radiologist's Impression: Rajwinder Persaud??78??F??1945 ? Allergy/Adv: aspirin, cefazolin, cephalexin, lisinopril, metformin, ramipril, Sulfa (Sulfonamide Antibiotics), sodium sulfite (More??) Close Head CT (Signed) JonhSatish - 12/19/[address] (Signed) JonhSatish - 12/19/[address] (Signed) JonhSatish - 12/19/[address] (Signed) Henok Perez - 10/16/23 CT Lung (Signed) Tiara Murray - 10/16/23 Thyroid Ultrasound (Signed) CamachoSayda - 10/12/23 Pelvis X-Ray (Signed) JonhSatish - 01/15/23 Pelvis X-Ray (Signed) JonhSatish - 01/15/[address] (Signed) Dangelo Gold - 01/14/23 Chest X-Ray (Signed) Robson Borjasse - 01/14/23 Knee X-Ray (Signed) Vero Romero - 01/14/23 Hip X-Ray (Signed) Vero Romero - 01/14/23 Launch?[place] [id number] CT Scan Report Signed Patient: Rajwinder Persaud MR#: [id number] : 1945 Acct:[id number] Age/Sex: 78 / F Date of Service: 12/19/23 Loc: ED Accession Number: [id number] Procedure: CT head/brain wo con Ordering Provider: Sarah Naranjo D.O. PROCEDURE: CT HEAD/BRAIN WO CON INDICATIONS: repeat CT for subdural TECHNIQUE: Noncontrast 4.5 mm thick angled axial sections acquired from the foramen magnum to the vertex, with coronal and sagittal reformats. For radiation dose reduction, the following was used: automated exposure control, adjustment of mA and/or kV according to patient size. COMPARISON: [facility], CT, CT HEAD/BRAIN WO CON, 12/19/2023, 10:25. FINDINGS: Image quality: Diagnostic. CSF spaces: Basal cisterns are patent. No extra-axial fluid collections. The ventricles are symmetric in size and shape. Brain: There is a stable small amount of subdural hemorrhage seen along the left tentorium, which is not worse than on the CT study performed earlier in the day. No intracranial masses. There is cerebral volume loss for age, with resultant ventricular and sulcal prominence. There are periventricular and deep white matter chronic small vessel ischemic changes. There is intracranial internal carotid artery atherosclerosis. Skull and face: Calvarium and visualized facial bones appear intact, without suspicious lesions. Sinuses: Visualized sinuses and mastoids are clear. IMPRESSION: Stable subdural hemorrhage seen layering along the left tentorium. Dictated by: Satish Borja M.D. on 12/19/2023 at 13:28 Approved by: Satish Borja M.D. on 12/19/2023 at 13:29 [facility] Narrative Medical decision making narrative: 78-year-old female not anticoagulated but does have dementia at baseline had likely mechanical fall last night. Has not had any recent falls since labor day a year ago. Has a posterior scalp laceration plan for head CT and C-spine based on extremity age with dementia combination. Tetanus is updated. Plan for staple repair of laceration. Head CT, shows mild subdural asymmetric thickening of the left tentorium measuring up to 2 mm thickness ventricles are symmetric in size and shape, posterior scalp lack. No calvarial fractures. C-spine shows enhancing lesion superior to the right carotid bifurcation between the [facility] same measuring 1.4 x 1.5 x 1.4 cm. Findings consistent with carotid body tumor. Thyroid nodules better evaluated on prior thyroid ultrasound. Updated patient and family. Head CT was repeated at 4 hours. Laceration was repaired 4 jennifer. Images were pushed to [facility], consultation with Neurosurgery, Dr. Wilson: Reviewed images, plan for repeat [address] if no increase in size/stable can discharge home with follow up with primary care if increase in size to re- contact [facility]. Repeat Head CT is stable without any acute change or increase in size. Discussed findings with patient family at bedside. She lives with her who is able to keep close eye on her. Discussed return precautions. Avoidance of any anticoagulants or aspirin. Can use Tylenol PRN for headache. Discharge Plan Departure Patient Disposition: Home Clinical Impression: Subdural hematoma Instructions: DI for Subdural Hematoma Activity Restrictions/Additional Instructions: You have a small subdural along the tentorium, it is 2 mm it has not increased in size on your repeat imaging today. I spoke with Neurosurgery today, they fee l you are safe for discharge home but return if you are having any new or worsening symptoms. Follow up with your primary care physician for recheck call to set up a follow up appointment. You can take Tylenol up to a 1000 mg every 6 hours as needed for any headaches. Do not take any aspirin or anticoagulants. Return for new or worsening headaches, vision changes, difficulty with speech or movement, passing out, vomiting, new chest pain or shortness of breath, new urinary incontinence, numbness tingling or weakness of extremities or other new or concerning changes. Prescriptions: No Action telmisartan 80 mg tablet 80 mg PO DAILY olmesartan 5 mg tablet 10 mg PO DAILY acetaminophen [Tylenol Extra Strength] 500 mg tablet See Rx Instructions .ROUTE .COMPLEX Qty: 360 3RF Rx Instructions: Take 2 tabs (1000mg) twice daily for pain, may repeat x1 dose in 24 hours, not to exceed 3000mg/24 hours; donepezil [Aricept] 5 mg tablet 5 mg PO BEDTIME Qty: 90 3RF memantine 5 mg tablet 5 mg PO QPM Qty: 90 3RF Referrals: Serena Flor ARNP [Primary Care Provider] - Stand Alone Forms: Patient Portal/API
--- NOTE | 2023-12-19 10:17 | DI.CT.S_ITS ---
PROCEDURE: CT HEAD/BRAIN WO CON INDICATIONS: fall, head lac, dementia TECHNIQUE: Noncontrast 4.5 mm thick angled axial sections acquired from the foramen magnum to the vertex, with coronal and sagittal reformats. For radiation dose reduction, the following was used: automated exposure control, adjustment of mA and/or kV according to patient size. COMPARISON: [facility], CT, CT CERVICAL SPINE WO CON, 12/19/2023, 10:25. FINDINGS: Image quality: Diagnostic. CSF spaces: Basal cisterns are patent. No extra-axial fluid collections. The ventricles are symmetric in size and shape. Brain: There is mild subdural hemorrhage seen, manifested as asymmetric thickening of the left tentorium, measuring up to 2 mm in thickness. No intracranial masses. There is cerebral volume loss for age, with resultant ventricular and sulcal prominence. There are periventricular and deep white matter chronic small vessel ischemic changes. There is intracranial internal carotid artery atherosclerosis. Skull and face: There is a scalp laceration seen posteriorly, to the left of the midline. No associated calvarial fracture can be seen. Calvarium and visualized facial bones appear intact, without suspicious lesions. Sinuses: Visualized sinuses and mastoids are clear. IMPRESSION: There is a mild degree of subdural hemorrhage seen, with asymmetric thickening of the left tentorium. Scalp laceration seen posteriorly, to the left of the midline. No displaced calvarial fracture can be seen. Note: Critical findings discussed by telephone with Dr. Naranjo at 10:41 a.m. [place] time on December 19, 2023. Dictated by: Satish Borja M.D. on 12/19/2023 at 9:38 Approved by: Satish Borja M.D. on 12/19/2023 at 9:42
--- NOTE | 2023-12-19 10:22 | PC.NURSE ---
Per , pt has dementia and HTN at baseline. Pt takes antihypertensive meds at night, bfore bed.
--- NOTE | 2023-12-19 10:25 | DI.CT.S_ITS ---
PROCEDURE: CT CERVICAL SPINE WO CON INDICATIONS: fall, head lac, dementia TECHNIQUE: Noncontrast 3 mm thick sections acquired from the skull base to the T4 level. Sagittal and coronal reformats were then constructed. Oblique axial images were also reformatted through the disc levels. For radiation dose reduction, the following was used: automated exposure control, adjustment of mA and/or kV according to patient size. COMPARISON: [facility], CT, CT SOFT TISSUE NECK W CON, 10/16/2023, 14:40. [facility], CT, CT HEAD/BRAIN WO CON, 12/19/2023, 10:25. FINDINGS: Image quality: Excellent. Bones: No fractures or dislocations. Visualized superior ribs are intact. Focal degenerative change is seen involving the C1-C2 interface anteriorly. There is at least moderate disc space narrowing seen at C2-C3 and C4-C5, with moderate to severe disc space narrowing seen at C4-C5 and C5-C6. Moderate disc space narrowing is seen at C6-C7. There is minimal retrolisthesis seen at C3-C4, with minimal anterolisthesis at C4-C5 and C5-C6. 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 Soft tissues: Prevertebral soft tissues are normal in thickness. No paravertebral hematomas. No apical pneumothoraces. Atherosclerotic calcification is noted. IMPRESSION: No displaced fracture or traumatic subluxation. Multiple levels of significant cervical spine degenerative change can be seen. 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 Dictated by: Satish Borja M.D. on 12/19/2023 at 9:35 Approved by: Satish Borja M.D. on 12/19/2023 at 9:38
[2023-12-19] MEDS: TET,DIPH,PERTUSS(ACELL),VAC/PF 0.5 ML SYRINGE IM (10:47)
[2023-12-19] MEDS: LIDOCAINE/PRILOCAINE 5 GM TOP (10:59)
--- NOTE | 2023-12-19 14:15 | DI.CT.S_ITS ---
PROCEDURE: CT HEAD/BRAIN WO CON INDICATIONS: repeat CT for subdural TECHNIQUE: Noncontrast 4.5 mm thick angled axial sections acquired from the foramen magnum to the vertex, with coronal and sagittal reformats. For radiation dose reduction, the following was used: automated exposure control, adjustment of mA and/or kV according to patient size. COMPARISON: [facility], CT, CT HEAD/BRAIN WO CON, 12/19/2023, 10:25. FINDINGS: Image quality: Diagnostic. CSF spaces: Basal cisterns are patent. No extra-axial fluid collections. The ventricles are symmetric in size and shape. Brain: There is a stable small amount of subdural hemorrhage seen along the left tentorium, which is not worse than on the CT study performed earlier in the day. No intracranial masses. There is cerebral volume loss for age, with resultant ventricular and sulcal prominence. There are periventricular and deep white matter chronic small vessel ischemic changes. There is intracranial internal carotid artery atherosclerosis. Skull and face: Calvarium and visualized facial bones appear intact, without suspicious lesions. Sinuses: Visualized sinuses and mastoids are clear. IMPRESSION: Stable subdural hemorrhage seen layering along the left tentorium. Dictated by: Satish Borja M.D. on 12/19/2023 at 13:28 Approved by: Satish Borja M.D. on 12/19/2023 at 13:29
== END 2023-12-19 15:09 | disposition home or self-care (01) ==
PROVIDERS: Emergency Provider Emergency Medicine; PCP Nurse Practitioner
DX: S06.5X0A Traumatic subdural hemorrhage without loss of consciousness, initial encounter (principal); S01.01XA Laceration without foreign body of scalp, initial encounter; F03.90 Unspecified dementia, unspecified severity, without behavioral disturbance, psychotic disturbance, mood disturbance, and anxiety; Z79.899 Other long term (current) drug therapy; W01.0XXA Fall on same level from slipping, tripping and stumbling without subsequent striking against object, initial encounter; Z23 Encounter for immunization
CPT/HCPCS: 12001; 70450; 72125; 90471; 99283; 99284; 90715

== ENCOUNTER → 2023-12-20 07:22 | Outpatient (CLI) | payer MEDICARE, OTHER, SELFPAY ==
[2023-01-14 16:49] VITALS: BMI 25.4
[2023-12-20 08:53] LABS: Free T3, Triiodothyronine Free 3.45 pg/mL (2.77-5.27)
[2023-12-20 09:06] LABS: Thyroid Stimulating Hormone 3.04 uIU/mL (0.47-4.68)
[2023-12-21 07:36] LABS: Thyroid Peroxidase Antibodies 70 IU/mL (0-34)
== END ==
PROVIDERS: PCP Nurse Practitioner; Referring Provider Nurse Practitioner; Visit Provider Nurse Practitioner
DX: R22.1 Localized swelling, mass and lump, neck (principal); Z83.49 Family history of other endocrine, nutritional and metabolic diseases
CPT/HCPCS: 36415; 84439; 84443; 84481; 86376

== ENCOUNTER → 2024-04-17 10:32 | Outpatient (CLI) | payer MEDICARE, OTHER, SELFPAY ==
[2023-01-14 16:49] VITALS: BMI 25.4
[2024-04-17 12:09] LABS: Free T3, Triiodothyronine Free 2.89 pg/mL (2.77-5.27); Free T4, Direct Thyroxine 1.63 ng/dL (0.78-2.19)
[2024-04-17 12:23] LABS: Thyroid Stimulating Hormone 0.963 uIU/mL (0.47-4.68)
[2024-04-18 07:36] LABS: Thyroid Peroxidase Antibodies 74 IU/mL (0-34)
== END ==
PROVIDERS: PCP Nurse Practitioner; Referring Provider Nurse Practitioner; Visit Provider Nurse Practitioner
DX: E06.3 Autoimmune thyroiditis (principal)
CPT/HCPCS: 36415; 84439; 84443; 84481; 86376

== ENCOUNTER → 2024-07-04 07:38 | Outpatient (CLI) | payer MEDICARE, OTHER, SELFPAY ==
[2023-01-14 16:49] VITALS: BMI 25.4
--- NOTE | 2024-07-04 07:41 | DI.MRI.S_ITS ---
PROCEDURE: MR ORBITS FACE NECK WO/W CON INDICATIONS: CAROTID BODY TUMOR TECHNIQUE: Sagittal/axial/coronal T1 spin echo and STIR. After the administration of contrast, axial/coronal/sagittal T1 fast spin echo with fat saturation through the neck. COMPARISON: [facility], CT, CT SOFT TISSUE NECK W CON, 10/16/2023, 14:40. [facility], CT, CT HEAD/BRAIN WO CON, 12/19/2023, 12:35. FINDINGS: Image quality: This examination is limited by involuntary motion artifact. Lymph nodes: No enlarged nodes are seen throughout the neck. Vessels: Visualized vasculature appears normal, with normal flow voids and enhancement. Neck spaces: Just superior to the right carotid bifurcation region, there is again seen a mass. On the current study, this is seen as a T2 hyperintense lesion with relatively uniform intense enhancement measuring 13 x 13 x 16 mm. On the prior CT, this measured 14 x 14 x 15 mm. The oropharynx, nasopharynx and pharynx are unremarkable, without mucosal lesions seen. Vocal cords, false vocal cords, pyriform sinuses, epiglottis, vallecula, and tongue base all appear normal. Extramucosal spaces of the neck also appear unremarkable. Glands: The parotid and submandibular glands appear normal. Thyroid gland demonstrates no significant abnormality. Miscellaneous: Visualized brain and orbits appear normal. Lung apices appear clear. Superficial soft tissues appear normal. Visualized sinuses and mastoids appear clear. Bones: Marrow has normal overall signal. 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 Dictated by: Satish Borja M.D. on 07/04/2024 at 12:20 Approved by: Satish Borja M.D. on 07/04/2024 at 12:24
== END ==
PROVIDERS: PCP Nurse Practitioner; Referring Provider Otolaryngology; Visit Provider Otolaryngology
DX: D44.6 Neoplasm of uncertain behavior of carotid body (principal)
CPT/HCPCS: 70543; A9579